=== PATIENT | male | born 1950 | race Caucasian/White ===

== ENCOUNTER 2024-06-09 09:34 | Inpatient (IN) | payer MEDICARE, SELFPAY ==
[2024-06-08 17:33] VITALS: BP 141/83
[2024-06-08 17:39] VITALS: BMI 22.5
[2024-06-08 18:20] LABS: % Basophils 0.2 % (0-2); % Eosinophils 0.2 % (0-6); % Immature Granulocytes 0.5 % (0-0.5); % Lymphocytes 10.7 % (20.5-51.1); % Monocytes 5.1 % (1.7-9.3); % Neutrophils 83.3 % (42.2-75.2); Absolute Immature Granulocytes 0.1 10^3/uL (0-0.05); Absolute Lymphocytes 1.3 10^3/uL (1.2-3.4); Absolute Monocytes 0.6 10^3/uL (0.1-0.6); Hematocrit 29.6 % (39.0-52.0); Hemoglobin 9.9 g/dL (13.0-18.0); Mean Corp Hgb Conc. 33.4 g/dL (33.0-37.0); Mean Corpuscular Hgb 29.7 pg (27.0-31.0); Mean Corpuscular Volume 88.9 fL (80.0-94.0); Mean Platelet Volume 8.7 fL (7.4-10.4); Nucleated Red Blood Cells % 0 % (-); Platelet Count 252 10^3/uL (130-400); Red Blood Cell Count 3.33 10^6/uL (4.70-6.10); Red Cell Dist. Width 16.9 % (11.5-14.5)
[2024-06-08 18:29] LABS: ALT (SGPT) 24 U/L (0-50); AST (SGOT) 48 U/L (17-59); Albumin 3.4 g/dl (3.5-5.0); Alkaline Phosphatase 208 U/L (38-126); Blood Urea Nitrogen 21 mg/dl (9-20); Calcium 9.9 mg/dl (8.4-10.2); Carbon Dioxide 26 mmol/L (22-30); Chloride 103 mmol/L (98-107); Estimated Creatinine Clearance 79 ml/min; Glucose 108 mg/dl (70-99); Magnesium 1.5 mg/dl (1.6-2.3); Potassium 4.1 mmol/L (3.5-5.1); Sodium 137 mmol/L (135-145); Total Bilirubin 0.6 mg/dl (0.2-1.3); Total Protein 6.2 g/dl (6.3-8.2); eGFR > 60.00
[2024-06-08] MEDS: DILAUDID 1 MG IV ×2 (19:31→20:31)
[2024-06-08] MEDS: TORADOL 15 MG IV (19:32)
[2024-06-08] MEDS: NSS 1000 IV (19:45)
--- NOTE | 2024-06-08 19:45 | ED.GENMED ---
History of Present Illness
General
Chief Complaint: Back Pain
Source: patient
Exam Limitations: none
Time Seen by Provider: 06/08/24 19:08
Nursing documentation reviewed up to this point in time: agreed with
History of Present Illness
History of Present Illness:
Patient with history of esophageal cancer with liver metastases, last chemotherapy withheld secondary to underlying Crohn's disease flareup, presents to ED secondary to worsening left lower back pain over the past 6 weeks despite taking pain
medication at home. Patient's last CT abdomen pelvis last month, did not reveal any bony abnormalities, per spouse. Denies fever or chills. Denies nausea or vomiting. Patient is reporting continual bloody bowel movements, not worse than usual
from his underlying Crohn's disease. Denies dizziness. Patient has chronic abdominal pain secondary to esophageal cancer, for which he is taking oxycodone. Denies trauma. Denies leg weakness or numbness. Denies urinary or bowel incontinence.
of note, patient currently takes prednisone 10 mg daily, to treat inflammatory response to chemotherapy, as well as Crohn's disease.
Past History
Past History
ED Past Medical History: Other (Crohn's/PUD)
ED Past Surgical History: None
Social History
Tobacco: Non-smoker
Alcohol: None
Drug: None
Personal:
Living: with family
Employment: Employed
Family History
Family History: Other (Noncontributory)
Review of Systems
Review of Systems
Allergies reviewed?: Yes
All Other Systems: ROS reviewed and negative except as documented in HPI and ROS
Constitutional: Reports no symptoms; Denies fever
Respiratory: Reports no symptoms
Cardiac: Reports no symptoms
ABD/GI: Reports abdominal pain and bloody stools; Denies nausea or vomiting
: Reports no symptoms; Denies flank pain, incontinence or difficulty voiding
Musculoskeletal: Reports back pain; Denies neck pain
Skin: Reports no symptoms
Neurological: Reports no symptoms; Denies weakness or numbness
Phy Exam
Physical Exam
Physical Exam:
Physical Exam
General: moderate painful distress. afebrile
Head: nc/at. eomi
Neck: supple. normal range of motion.
Heart: s1/s2 regular rate and rhythm, no murmur.
Lungs: no acute respiratory distress. clear bilaterally
Abdomen: normal bowel sounds. not tender.
Back: left lower back tenderness to palpation with positive straight leg raise
Neuro: alert and oriented x 3. no focal neurological deficits. normal speech
Skin: no rash
Psychiatric: well kept. interactive and cooperative
Extremities: no edema. no calf tenderness.
Course
Orders/Labs/Results
Orders:
Orders
06/08/24 Breakfast
Regular
At Your Request: Full Participation
06/08/24 18:08
Complete Blood Count/With Diff Urgent
Comprehensive Metabolic Panel Urgent
Magnesium Urgent
06/08/24 19:29
HYDROmorphone [Dilaudid] 1 mg IV NOW STA
Ketorolac [Toradol] 15 mg IV NOW STA
CR Lumbar Spine Comp Min 4 Vw* Urgent
Comment:
Reason For Exam: left lower back pain, hx esophageal cancer
06/08/24 19:41
0.9% Sodium Chloride 1000 ml [Nss] 1,000 ml IV BOLUS
06/08/24 19:43
0.9% Sodium Chloride 1000 ml [Nss] 1,000 ml IV BOLUS
06/08/24 19:47
Urinalysis Reflex To Culture Urgent
Date Specimen was Collected: 06/08/24
Time Specimen was Collected: 19:46
06/08/24 19:52
diazePAM [Valium Injection] 2 mg IV NOW STA
06/08/24 19:56
Magnesium Sulfate 1 grams 0.9% Sodium Chloride 100 ml [Nss] 100 ml IV NOW
06/08/24 20:22
HYDROmorphone [Dilaudid] 1 mg IV NOW STA
06/08/24 22:02
Admit/Transfer Patient As Directed
Co-Sign Provider:
Level of Care: Observation services
Assign to:: Medical/Surgical
Physician / Group: heidi
Diagnosis: compression fracture
Reason for Hospitalization: compression fracture
patient requesting private room due to esophageal cancer, Crohn's disease
PRN Pain Medication Management As Directed
May give lesser potent ordered pain med per pt: Yes
preference::
Protocol:: Medication orders for pain may be administered in a
manner that supports deferring to patient preference
when the pt is:
- Requesting an ordered lesser potent pain medication.
Least to most potent pain medications are defined
as: acetaminophen < NSAID < tramadol < opioids
(morphine, oxycodone, hydromorphone).
- Requesting a lesser dose of the same medication IF
ORDERED.
- Requesting a less intrusive route of administration
if both routes are prescribed by the provider (PO <
IV).
06/08/24 22:07
Code Status As Directed
Resuscitation Status: Full Code
06/08/24 22:10
Lidocaine [Lidocaine 4% Patch] 1 patch TOPICAL HS
Apply Lidocaine patch(s) to:: lower back
06/08/24 23:00
Flush (0.9% Sodium Chloride) [Flush (Nss)] See Dose Instructions IV PER PROTOCOL
06/08/24 23:06
Baclofen [Lioresal] 5 mg PO DAILYPRN PRN
Bisacodyl [Dulcolax] 10 mg RECTAL [id number] PRN
Docusate W/Senna [Senokot-S] 1 tablet PO BIDPRN PRN
HYDROmorphone [Dilaudid] 1 mg IV Q4HPRN PRN
Ketorolac [Toradol] 10 mg IV Q6HPRN PRN
Lorazepam [Ativan] 0.5 mg PO DAILYPRN PRN
Olanzapine [Zyprexa] 2.5 mg PO BIDPRN PRN
Polyethylene Glycol Powder [Miralax] 17 grams PO DAILYPRN PRN
06/08/24 23:06
MR Lumbar Without Contrast Routine
Comment:
Reason For Exam: back pain
Recent pill cam endoscopy?: No
Activity As Directed
Activity Level: As Tolerated
Pneumatic Compression Sleeves As Directed
Type: Knee high
Vital Signs As Directed
Frequency: Per unit guidelines
DX Deep Vein Thrombosis Video Routine
06/09/24 00:00
Sertraline HCl [Zoloft] 50 mg PO QPM
06/09/24 06:00
Basic Metabolic Panel IN AM
Complete Blood Count/No Diff IN AM
Occupational Therapy Consult [Ot Eval And Treat] IN AM
Physical Therapy Consult [Pt Eval And Treat] IN AM
Activity Level: As Tolerated
06/09/24 08:00
Acetaminophen [Tylenol] 1,000 mg PO TID
Magnesium Oxide 250 mg PO BID
Pantoprazole [Protonix] 40 mg PO BID
Prednisone [Deltasone] 10 mg PO DAILY
06/09/24 10:00
Remove Patch [Remove Lidocaine Patch] 1 patch REMOVE DAILY@1000
Abnormal Lab Results
06/08/24
18:08
WBC 12.0 H 10^3/uL
(4.8-10.8)
RBC 3.33 L 10^6/uL
(4.70-6.10)
Hgb 9.9 L g/dL
(13.0-18.0)
Hct 29.6 L %
(39.0-52.0)
RDW 16.9 H %
(11.5-14.5)
Abs Immat Gran (auto) 0.1 H 10^3/uL
(0-0.05)
Absolute Neuts (auto) 10.0 H 10^3/uL
(1.4-6.5)
Neutrophils % 83.3 H %
(42.2-75.2)
Lymphocytes % 10.7 L %
(20.5-51.1)
BUN 21 H mg/dl
(9-20)
Glucose 108 H mg/dl
(70-99)
Magnesium 1.5 L mg/dl
(1.6-2.3)
Alkaline Phosphatase 208 H U/L
(38-126)
Total Protein 6.2 L g/dl
(6.3-8.2)
Albumin 3.4 L g/dl
(3.5-5.0)
06/08/24 18:08
06/08/24 18:08
Vital Signs
Initial and Last Documented VS:
Initial Vital Signs
Temp Pulse Resp BP Pulse Ox
99.5 F 74 18 141/83 98
06/08/24 17:33 06/08/24 17:33 06/08/24 17:33 06/08/24 17:33 06/08/24 17:33
Last Documented Vital Signs
Temp Pulse Resp BP Pulse Ox
99.5 F 70 16 134/75 96
06/08/24 17:33 06/08/24 21:14 06/08/24 21:14 06/09/24 00:00 06/09/24 00:00
MDM/Problems Addressed
MDM/Problems Addressed:
Patient unfortunate with intractable back pain despite treatment with multiple medications in ED. At this time, however, patient does not have any physical exam findings concerning for cauda equina syndrome. Patient will be admitted for further
evaluation and treatment, including possible MRI spine, if symptoms persist.
*Critical Care Note
Total Time (30-74mins, 75-104mins- exclusive of procedures): Not Applicable
ED Attending Note
-
Portions of this chart may have been created with voice recognition software.� Occasional wrong word or��sound alike� substitutions may have occurred due to the inherent limitations of voice recognition software.
Discharge Plan
Departure
Patient Disposition: Admit
Date of Disposition: 06/08/24
Time of Disposition: 21:30
Admit to: Med/Surg
Presentation/result/management discussed w/ accepting MD/DO: Hospitalist
Discharge Problem:
Intractable back pain, Compression fracture
Interventions
Interventions:
*Risk Screen - Suicide Last Done: 06/08/24 17:33
*General Assessment Last Done: 06/08/24 17:33
*Neglect/Abuse Screening Last Done: 06/08/24 18:05
*ED- Fall Risk Assessment Last Done: 06/08/24 18:00
*ED COVID-19 Vaccine History Last Done: 06/08/24 23:55
ED-Musculoskeletal Assessment Last Done: 06/08/24 19:27
[2024-06-08] MEDS: VALIUM INJECTION 2 MG IV (19:54)
[2024-06-08 19:56] LABS: Urine Albumin Negative (Neg - Trace); Urine Bilirubin Negative (Negative); Urine Character Clear (Clear); Urine Color Yellow; Urine Glucose Negative (Negative); Urine Ketone Negative (Negative); Urine Leukocyte Negative (Negative); Urine Nitrite Negative (Negative); Urine Occult Blood Negative (Negative); Urine Specific Gravity 1.015 (<1.030); Urine Urobilinogen Negative (Neg - 1+)
[2024-06-08] MEDS: MAGNESIUM SULFATE 102 GRAMS IV (20:32)
[2024-06-08 21:14] VITALS: BP 146/75
--- NOTE | 2024-06-08 21:32 | HPS.HSE ---
Family Physician
-
Family Physician: Bean Moran
Chief Complaint
-
left lower back pain.
History of Present Illness
73 year old old hxt of stage iv esophageal cancer follows oncology at [facility] on Immunotherapy, anxiety presents with left sided lower back pain. the pain is not radiating to LE. he denied incontinence of bowel and bladder. Denies trauma. Denies leg
weakness or numbness. patient also complaining of right arm pain. patient taking oxycodone, baclofen with no relief in his symptoms. denied ACOSTA, dizzy or syncope. denied fever, chills chest pain, sob. patient has chornic abdominal pain and diarrhea
due to Crohn's disease. denied dysuria or hematuria.
X ray with the impression of Age indeterminant compression fracture of the L3 vertebral body.There is a mild compression deformity of the L1 vertebral body which appears present on prior.There is mild facet arthropathy within the mid/lower lumbar
spine.
Patient received Valium, Dilaudid, Toradol, magnesium, normal saline in the ER admitted for further management
Medical History
Past Medical History
Past Medical History: Reports Other
Additional Past Medical History:
External hemorrhoid
Epididymal/orchitis
Close visit
Past Surgical History: Reports Other
Additional Past Surgical History:
Appendectomy
Cholecystectomy
Social History
Tobacco: Former Smoker
Alcohol: None
Drug: None
Personal:
Living: With Family
Family History
Family History: Not pertinent
Allergies / Home Medications
Allergies reflects when Allergies were last updated in [facility].
Home Medications with original date entered in [facility]
Allergy/Medication List:
Allergies
Allergy/AdvReac Type Severity Reaction Status Date / Time
bacitracin Allergy Severe Rash Verified 12/10/17 19:17
[From Neosporin
([id number])]
neomycin Allergy Severe Rash Verified 12/10/17 19:17
[From Neosporin
([id number])]
polymyxin B Allergy Severe Rash Verified 12/10/17 19:17
[From Neosporin
([id number])]
Latex, Natural Rubber Allergy soft Verified 12/10/17 19:17
tissue
swelling
w/ latex
gloves
orally
prochlorperazine edisylate Allergy muscle Verified 12/10/17 19:17
[From Compazine] twitch
prochlorperazine maleate Allergy Unknown Verified 12/10/17 19:17
[From Compazine]
Home Medications
Magic Mouthwash 1 dose buccal DAILYPRN PRN mouth sores 06/08/24
baclofen 5 mg tablet 5 mg PO DAILYPRN PRN burping 06/08/24
dexamethasone 0.5 mg/5 mL oral solution 0.5 mg PO DAILYPRN PRN mouth sores 06/08/24
esomeprazole magnesium 40 mg capsule,delayed release (Nexium) 40 mg PO BID 06/08/24
lorazepam 0.5 mg tablet 0.5 mg PO DAILYPRN PRN nausea 06/08/24
magnesium oxide 200 mg PO BID 06/08/24
olanzapine 2.5 mg tablet 2.5 mg PO BIDPRN PRN mental health 06/08/24
ondansetron 4 mg disintegrating tablet 4 mg PO DAILYPRN PRN nausea 06/08/24
oxycodone 10 mg tablet 20 mg PO Q3HPRN PRN severe pain 06/08/24
polyethylene glycol 3350 17 gram oral powder packet (Miralax) 17 g PO DAILYPRN PRN constipation 06/08/24
prednisone 10 mg tablet 10 mg PO DAILY 06/08/24
sennosides 8.6 mg tablet (senna) 8.6 mg PO DAILYPRN PRN constipation 06/08/24
sertraline 50 mg tablet 50 mg PO QPM 06/08/24
Review of Systems
-
Constitutional: Reports No Symptoms
EENT: Reports No Symptoms
Respiratory: Reports No Symptoms
Cardiac: Reports No Symptoms
Abdomen/GI: Reports No Symptoms
: Reports No Symptoms
Musculoskeletal: Reports Other (left lower back pain, right arm pain)
Skin: Reports No Symptoms
Neurological: Reports No Symptoms
Endocrine: Reports No Symptoms
Hematologic/Lymphatic: Reports No Symptoms
Psych: Reports No Symptoms
Physical Exam
Vital Signs
Vital Signs
Temp Pulse Resp BP Pulse Ox
99.5 F 70 16 146/75 98
06/08/24 17:33 06/08/24 21:14 06/08/24 21:14 06/08/24 21:14 06/08/24 21:14
Physical Exam
General: Well Developed, Well Nourished and No Apparent Distress
HEENT: NormoCephalic, Moist mucous membranes and Atraumatic
Respiratory: Clear
Cardiac: S1/S2 and Regular Rhythm; No Murmur or Rub
GI: Soft, Non Tender, Non Distended and Normal Bowel Sounds; No Organomegaly
Rectal: Deferred by Provider
Musculoskeletal: No Clubbing, No Cyanosis and No Edema
Skin: No Rash
Neuro: AO x 3 and Nonfocal/grossly intact
Psych: Calm
Laboratory Results
-
06/08/24 18:08
06/08/24 18:08
Laboratory Results
Total Bilirubin 0.6 mg/dl (0.2-1.3) 06/08/24 18:08
AST 48 U/L (17-59) 06/08/24 18:08
ALT 24 U/L (0-50) 06/08/24 18:08
Alkaline Phosphatase 208 U/L (38-126) H 06/08/24 18:08
Data Reviewed
-
Diagnostic Radiology: Report Reviewed by me
Lab Data: Labs Reviewed by me
Impression/Plan
-
# Intractable back pain likely from compression fracture of the L3 vertebral body.
- Lumbar spine x-ray with the impression of Age indeterminant compression fracture of the L3 vertebral body.There is a mild compression deformity of the L1 vertebral body which appears present on prior.There is mild facet arthropathy within the
mid/lower lumbar spine.
-PT/OT consulted
-Toradol, Dilaudid, Lidocaine patch, Tylenol prn for pain
-baclofen continued
-obtain MRI of lumbar spine.
# Chron's flare
-Nexium continued
-prednisone continued
-on Remicade as outpatient
#hxt of stage IV esophageal cancer
-on Immunotherapy at [facility]
#anxiety
-olanzapine,sertraline continued
# Leukocytosis likely from steroids
- WBC 12.0, patient is afebrile
- Continue to monitor
- UA negative
# Anemia likely chronic
- Hemoglobin stable at 9.9
- No active bleeding
- Continue to monitor
# hypomagnesemia
- Mag 1.5
-replated with iv mag
#DVT Prophylaxis
-SCD
#CODE status
-full code
--- NOTE | 2024-06-08 21:41 | W.PN.UPDATE ---
Update Note
Progress Note Update
Patient seen in conjunction with [facility]. I agree with the findings and history of physical. I concur with assessment and plan listed otherwise.
This is a 73-year-old past medical history significant for metastatic esophageal cancer with mets to the liver currently on chemotherapy presenting to the emergency department with intractable left lower back pain. As past report that the patient
has been having back pain for several weeks. He had a CT scan done on 05/11 which showed compression fracture at the level of L3 without progression into the spinal canal. He has continued to have pain after the study and the pain became more
severe over the last 2 weeks. There was no new injury. He has not had any fevers or chills. There were no radicular signs including paresthesias, numbness or weakness. There is no bilateral lower extremity weakness. There is no incontinence of
the bladder or bowel. He has no anesthesia. He denies any urinary symptoms such as frequency urgency dysuria, fevers chills or hematuria. It was reported yesterday patient had severe right arm pain to touch. There was no swelling. There was no
rash or redness. There was no weakness numbness or tingling. He denies any neck pain or neck stiffness.
He is on Remicade and daily prednisone for management of ongoing Crohn's flare. He is also on immunotherapy for his metastatic esophageal cancer with last infusion held due to abnormal findings on CT scan thought to be possibly inflammatory or
secondary to the medication.
In the Emergency Department he was afebrile with a Tmax of 99.5F, blood pressure was 146/75 with a pulse of 71 satting 98% on room air.
White count was 12, hemoglobin 9.9 ambulated 52. Electrolytes were unremarkable with normal BUN and creatinine. Magnesium was slightly low at 1.5, LFTs were mostly normal with a slight elevation in alk phos.
UA was negative. X-ray of the lumbar spine shows no acute bony changes.
1. Back pain - Suspect due to the previously seen compression fracture. Age indeterminate L3 compression fracture on Xray today similar to seen on CT scan in early april. No weakness, numbness, tingling. No bowel/bladder symptoms. Overall low to
moderate concern for myelopathy and minimal concern for radiculopathy. However family extremely concerned. Improved after IV dilauid 1mg x 2 and
- admit to med/surg
- pain control with IV toradol and IV dilaudid. Tylenol RTC
- bowel regimen
- topical lidocaine
- MRI lumbar spine
- PT consult
- case management
2. Crohns
- continue prednisone
- on outpatient Remicade
DVT PPX - lovenox sq
Code status - full code
[2024-06-09] VITALS (8 sets, daily range): BP systolic 118–148; BP diastolic 63–79
[2024-06-09] MEDS: LIDOCAINE 4% PATCH 1 PATCH TOPICAL ×2 (00:34→23:03)
[2024-06-09] MEDS: ZOLOFT 50 MG PO ×2 (00:39→17:34)
[2024-06-09] MEDS: DILAUDID 1 MG IV ×3 (00:44→08:42)
[2024-06-09] MEDS: NON-FORMULARY ITEM 40 MG PO ×3 (01:00→18:11)
[2024-06-09] MEDS: TORADOL 10 MG IV ×3 (01:38→19:38)
[2024-06-09] MEDS: VALIUM INJECTION 2 MG IV ×3 (04:39→19:44)
[2024-06-09 05:10] LABS: Hematocrit 28.9 % (39.0-52.0); Hemoglobin 9.8 g/dL (13.0-18.0); Mean Corp Hgb Conc. 33.9 g/dL (33.0-37.0); Mean Corpuscular Hgb 30.2 pg (27.0-31.0); Mean Corpuscular Volume 89.2 fL (80.0-94.0); Mean Platelet Volume 8.6 fL (7.4-10.4); Platelet Count 228 10^3/uL (130-400); Red Blood Cell Count 3.24 10^6/uL (4.70-6.10); Red Cell Dist. Width 16.7 % (11.5-14.5); White Blood Cell Count 9.6 10^3/uL (4.8-10.8)
[2024-06-09 05:41] LABS: Blood Urea Nitrogen 23 mg/dl (9-20); Calcium 9.8 mg/dl (8.4-10.2); Carbon Dioxide 25 mmol/L (22-30); Chloride 104 mmol/L (98-107); Estimated Creatinine Clearance 91 ml/min; Glucose 67 mg/dl (70-99); Potassium 3.8 mmol/L (3.5-5.1); Sodium 138 mmol/L (135-145); eGFR > 60.00
[2024-06-09 05:42] LABS: Magnesium 1.9 mg/dl (1.6-2.3)
[2024-06-09] MEDS: MAGNESIUM OXIDE 250 MG PO ×2 (08:42→19:38)
[2024-06-09] MEDS: DELTASONE 10 MG PO (08:42)
[2024-06-09] MEDS: TYLENOL 1000 MG PO (08:42)
--- NOTE | 2024-06-09 09:28 | W.PN.HOSP.TC ---
Today's Communication/Plan
-
Lumbar MRI
Add OxyContin
Resume oxycodone as needed
Bowel regimen
PT/OT
Speech therapy
Assessment / Plan
Assessment / Plan
Gen-AAOx3, NAD
HEENT-NC, AT, anicteric, clear oral mm
Neck-supple
CV-reg, no M, +S1/S2
Lungs-clear B/L
Abd-soft, NT, ND
Ext-no edema
Musculoskeletal-no cyanosis, clubbing
Skin-warm and dry
Neuro-grossly non-focal
Psych-calm, cooperative
Intractable pain syndrome -suspect related to lumbar vertebral compression fractures. Lumbar x-ray noted. Fractures involving L1 and L3 vertebrae. Suspect fractures related to underlying osteoporosis. Less likely due to metastatic esophageal
cancer. Patient denies fall or trauma.
Resume oxycodone 20 mg every 3 hours as needed. Add OxyContin 20 mg every 12 hours. IV Dilaudid for intractable pain. Patient agreeable.
Lumbar vertebral compression fractures -as above. Await lumbar MRI. Continue analgesics. PT/OT.
Metastatic esophageal cancer -on treatment by [facility] oncology. Does have some dysphagia. Consult speech therapy.
Crohn's disease -on prednisone chronically.
Hypomagnesemia -improved.
Normocytic anemia -suspect chronic and related to malignancy. Monitor for now. Baseline hemoglobin unknown.
Anxiety disorder
Full code
updated at the bedside.
Anticipated Discharge: 24 - 48 hours
Subjective/Interval History
-
Date of Service: June 09, 2024
Patient seen and examined. Complaining of lower back pain.
Objective Data
-
Labs:
Laboratory Results
06/09/24
04:45
WBC 9.6
Hgb 9.8 L
Hct 28.9 L
Plt Count 228
Sodium 138
Potassium 3.8
Chloride 104
Carbon Dioxide 25
BUN 23 H
Creatinine 0.7
Glucose 67 L
Calcium 9.8
Vital Signs:
Vital Signs
Temp Pulse Resp BP Pulse Ox
98.6 F 73 18 148/76 94
06/09/24 08:37 06/09/24 08:37 06/09/24 08:37 06/09/24 08:37 06/09/24 08:37
Review of Systems
-
History Source: Patient
All other systems: Reviewed and negative
--- NOTE | 2024-06-09 10:45 | CM ---
CM following re: discharge planing.
Reviewed pt's chart, met with pt and pt's spouse at bedside.
Pt is a 73 year old male, admitted with primary dx of Intractable pain syndrome. PMH includes: stage iv esophageal cancer follows oncology at [facility] on Immunotherapy, anxiety. Pt is upgraded to inpatient status. IMM reviewed, placed on chart, pt has
a copy.
Pt livers with spouse 2SH, 1 step to enter, has no children and per spouse pt has big family support. Pt reports he ambulates with a cane as needed. Pt's spouse stated that pt has been in and out different hospitals in the past 6 months.
PT and OT will evaluate the pt to determine a level of care at discharge.
PCP: Bean Moran
Pharmacy: [facility] [place]
D/C plan: uncertain at this time and will depend on pt's progress. Awaiting PT/OT evaluations and recommendations.
CM will follow with discharge plan updates as hospitalization progresses.
[2024-06-09] MEDS: OXYCONTIN (CONTROLLED RELEASE) 20 MG PO ×2 (11:00→23:03)
[2024-06-09] MEDS: MIRALAX PO (11:01)
[2024-06-09] MEDS: SENOKOT-S PO ×2 (11:01→19:34)
[2024-06-09] MEDS: ROXICODONE 20 MG PO ×4 (11:05→20:49)
--- NOTE | 2024-06-09 15:03 | PTOTSP ---
Speech Therapy Evaluation:
Pt presents with signs concerning for mild oral dysphagia as demonstrated by brief oral holding of liquids and puree with slow but present AP transfers. No signs concerning for pharyngeal dysphagia or aspiration. Pt at increased risk of
post-prandial aspiration given esophageal hx including Stage IV esophageal cancer, occasional reports of globus sensation, and suboptimal positioning for swallowing secondary to chronic back pain. Currently, WBC WNL, pt afebrile, and pt on room air.
Recommend:
1. Continue regular solids and thin liquids
2. Medications as best tolerated with larger pills crushed in puree per pt preference
3. Strict aspiration and reflux precautions
4. FAMILY LAW ATTORNEY to follow to monitor tolerance of diet and provide education in compensations.
[2024-06-09] MEDS: TYLENOL PO ×2 (16:00→23:04)
[2024-06-10] VITALS (7 sets, daily range): BP systolic 97–112; BP diastolic 53–63; PULSE 76–80; O2SAT 93–94
[2024-06-10] MEDS: TORADOL 10 MG IV (01:39)
[2024-06-10] MEDS: VALIUM INJECTION 2 MG IV ×3 (01:40→17:27)
[2024-06-10] MEDS: ROXICODONE 20 MG PO ×3 (04:46→20:19)
[2024-06-10] MEDS: DESENEX/MITRAZOL/ZEASORB 1 APPLIC TOPICAL ×2 (08:05→20:11)
[2024-06-10] MEDS: DELTASONE 10 MG PO (08:20)
[2024-06-10] MEDS: NON-FORMULARY ITEM 40 MG PO (08:21)
[2024-06-10] MEDS: MIRALAX PO (08:22)
[2024-06-10] MEDS: SENOKOT-S PO ×2 (08:23→20:13)
[2024-06-10] MEDS: TYLENOL 1000 MG PO ×3 (08:24→22:23)
[2024-06-10] MEDS: MAGNESIUM OXIDE 250 MG PO (08:24)
[2024-06-10] MEDS: OXYCONTIN (CONTROLLED RELEASE) PO (09:04)
--- NOTE | 2024-06-10 10:32 | W.PN.HOSP.TC ---
Today's Communication/Plan
-
Add ibuprofen
Lumbar MRI
Bowel regimen
Assessment / Plan
Assessment / Plan
Gen-AAOx3, NAD
HEENT-NC, AT, anicteric, clear oral mm
Neck-supple
CV-reg, no M, +S1/S2
Lungs-clear B/L
Abd-soft, NT, ND
Ext-no edema
Musculoskeletal-no cyanosis, clubbing
Skin-warm and dry
Neuro-grossly non-focal
Psych-calm, cooperative
Intractable pain syndrome -suspect related to lumbar vertebral compression fractures. Lumbar x-ray noted. Fractures involving L1 and L3 vertebrae. Suspect fractures related to underlying osteoporosis. Less likely due to metastatic esophageal
cancer. Patient denies fall or trauma.
Continue oxycodone 20 mg every 3 hours as needed, OxyContin 20 mg every 12 hours. IV Dilaudid for intractable pain. Change Toradol to ibuprofen 800 mg 4 times daily [id number]. Patient agreeable.
Bowel regimen.
Lumbar vertebral compression fractures -as above. Await lumbar MRI. Continue analgesics. PT/OT.
Metastatic esophageal cancer -on treatment by [facility] oncology. Does have some dysphagia. Speech therapy recommends regular solids, thin liquids.
Crohn's disease -on prednisone chronically.
Hypomagnesemia -improved.
Normocytic anemia -suspect chronic and related to malignancy. Monitor for now. Baseline hemoglobin unknown.
Anxiety disorder
Full code
Dispo -will need SNF on discharge. Updated case management.
updated at the bedside.
Anticipated Discharge: 24 - 48 hours
Subjective/Interval History
-
Date of Service: June 10, 2024
Patient seen and examined. States his lower back pain is somewhat better today compared to yesterday. No new complaints.
Objective Data
-
Vital Signs:
Vital Signs
Temp Pulse Resp BP Pulse Ox
99.9 F 88 15 112/58 95
06/10/24 07:00 06/10/24 07:00 06/10/24 07:00 06/10/24 07:00 06/09/24 23:20
I&O
06/09/24 06/10/24 06/11/24
06:59 06:59 06:59
Intake Total 250 / 250
Output Total 200 / 200
Balance 50 / 50
Review of Systems
-
History Source: Patient
All other systems: Reviewed and negative
[2024-06-10] MEDS: DILAUDID 1 MG IV ×3 (10:45→22:23)
--- NOTE | 2024-06-10 11:43 | CM ---
CM following re: discharge planning.
Reviewed pt's chart, met with pt's SO at bedside. Pt is getting MRI.
Pt's SO is aware that PT/OT recommend SNF vs home PT. Pt's SO stated that pt is very sensitive to germs and she feels that SNF will not be a good idea and pt's SO stated she will talk to the pt after he returned from MRI. Pt's SO stated she feels
[facility] might be an ideal plan but she is not sure whether or not pt can tolerate 3 hours of therapy per day.
Per pt's SO strong request, CM will revisit the pt later this afternoon or tomorrow morning to confirm the discharge plan.
D/C plan: SNF vs [facility] vs home PT. Pt's SO is deciding with the pt.
CM will follow to assist pt with discharge to next level of care.
[2024-06-10] MEDS: OXYCONTIN (CONTROLLED RELEASE) 20 MG PO ×2 (12:20→23:39)
[2024-06-10] MEDS: 0.45%NACL 1000 IV (12:20)
[2024-06-10] MEDS: MOTRIN 800 MG PO ×3 (12:21→22:23)
[2024-06-10] MEDS: ZOLOFT 50 MG PO (17:27)
[2024-06-10] MEDS: MAGNESIUM OXIDE PO (20:13)
[2024-06-10] MEDS: NON-FORMULARY ITEM PO (20:13)
[2024-06-10] MEDS: LIDOCAINE 4% PATCH 1 PATCH TOPICAL (22:22)
[2024-06-11] MEDS: DILAUDID 1 MG IV ×4 (06:11→21:17)
[2024-06-11 07:05] VITALS: BP 98/59
--- NOTE | 2024-06-11 08:38 | W.PN.HOSP.TC ---
Today's Communication/Plan
-
Oncology consult
Bowel regimen
Continue analgesics
PT/OT
Assessment / Plan
Assessment / Plan
Gen-AAOx3, NAD
HEENT-NC, AT, anicteric, clear oral mm
Neck-supple
CV-reg, no M, +S1/S2
Lungs-clear B/L
Abd-soft, NT, ND
Ext-no edema
Musculoskeletal-no cyanosis, clubbing
Skin-warm and dry
Neuro-grossly non-focal
Psych-calm, cooperative
Intractable pain syndrome -suspect related to lumbar vertebral compression fractures. Lumbar x-ray noted. Fractures involving L1 and L3 vertebrae. Suspect fractures related to underlying osteoporosis. Less likely due to metastatic esophageal
cancer. Patient denies fall or trauma.
Continue oxycodone 20 mg every 3 hours as needed, OxyContin 20 mg every 12 hours. IV Dilaudid for intractable pain. Continue ibuprofen [id number].
Bowel regimen. No bowel movement so far in the hospital.
L3 pathologic fracture -noted on lumbar MRI. Concern for metastatic esophageal cancer, although esophageal cancer is not a common cancer to metastasize to the spine. Oncology consulted for opinion regarding possible biopsy of L3 vertebrae. Not
sure this would knife changer, as patient already is known to have stage IV esophageal cancer.
Patient has no radicular symptoms, no leg weakness. Should he develop radicular symptoms, may need spinal surgery. Discussed with patient and . Also discussed with neurosurgery Dr. Bucio for opinion.
Metastatic esophageal cancer -on treatment by [place] oncology. Does have some dysphagia. Speech therapy recommends regular solids, thin liquids.
Crohn's disease -on prednisone chronically.
Hypomagnesemia -improved.
Normocytic anemia -suspect chronic and related to malignancy. Monitor for now. Baseline hemoglobin unknown.
Anxiety disorder
Full code
Dispo -will need SNF on discharge. Updated case management. However, is concerned about his immunosuppression and risk of potential infections in rehab. She is contemplating taking him home with home care but unsure if they can manage at
home.
updated at the bedside.
Anticipated Discharge: 24 - 48 hours
Subjective/Interval History
-
Date of Service: June 11, 2024
Patient seen and examined. Pain is manageable. No complaints.
Objective Data
-
Vital Signs:
Vital Signs
Temp Pulse Resp BP Pulse Ox
97.9 F 56 17 98/59 95
06/11/24 07:05 06/11/24 07:05 06/11/24 07:05 06/11/24 07:05 06/11/24 07:05
I&O
06/10/24 06/11/24 06/12/24
06:59 06:59 06:59
Intake Total 250 / 250 480 / 480
Output Total 200 / 200 750 / 750
Balance 50 / 50 -270 / -270
Review of Systems
-
History Source: Patient
All other systems: Reviewed and negative
[2024-06-11] MEDS: MAGNESIUM OXIDE 250 MG PO ×2 (09:52→20:55)
[2024-06-11] MEDS: TYLENOL 1000 MG PO ×3 (09:53→21:09)
[2024-06-11] MEDS: DELTASONE 10 MG PO (09:53)
[2024-06-11] MEDS: MOTRIN 800 MG PO ×4 (09:53→21:09)
[2024-06-11] MEDS: PROTONIX 40 MG PO (10:00)
--- NOTE | 2024-06-11 10:05 | CON.ONC ---
Consultation
-
Date Consultation Requested: 06/11/24
Date Consultation Performed: 06/11/24
Requesting Provider: Dr. Cabral
Performing Provider: Dr. Perez
Reason for Consultation: Metastatic esophageal cancer
Impression
Impression
stage IV esophageal cancer on immunotherapy with Dr. Kulkarni at [facility]
Intractable back pain likely from compression fracture of the L3 vertebral body
dysphagia
anemia
Plan
Plan
dexamethasone 4mg q6 -PPI while on steroid, tight glycemic control while on steroids
increase baclofen to 10mg prn
eventual outpatient XRT to L3
pain management
bowel regimen while on narcotics
check iron studies, b12, folate -replete if needed
speech therapy
If needs SNF vs rehab at d/c consider [facility]VAR to facilitate XRT to L3 d/w hospitalist & case management
Dr. Perez discussed case with primary oncologist, Dr. Kulkarni and Radiation oncology.
at bedside provided with updates and questions answered
Patient History
History of Present Illness
73yo M known to Dr. Kulkarni at [facility] for management of stage IV esophageal ca admitted with intractable back pain. His labs are notable for anemia with a Hgb 9.8g/dL and elevated alk phos 208, otherwise there are no significant abnormalities on CBC and
CMP today. His MRI of the lumbar spine reveals a L3 expansile metastatic lesion with pathologic fracture and secondary encroachment upon the central canal, left lateral recess, and left L3-4 neural foramen. Moderate central canal and severe left
lateral recess stenosis. Mild compression of the exiting left L3 nerve root. There are additional small lesions demonstrated involving T11 and T12.
Clinically, he denies fever, chills, cough, sob, chest pain, palpations, n/v/d or abdominal pain. His back pain is better controlled with IV hydromorphone prn in addition to oxycodone CR 20mg BID and oxycodone IR 20mg prn. He is using diazepam prn
anxiety.
Past-Medical/Surgical History
PMH stage IV esophageal cancer, anxiety, External hemorrhoid, Epididymal/orchitis
PSH Appendectomy, Cholecystectomy
Social former smoker, denies ETOH or recreational drugs. Lives with .
Family noncontributory
Patient Medication
�Medication �Instructions �Recorded �Confirmed �Last Taken �Type
Magic Mouthwash 1 dose buccal DAILYPRN PRN mouth 06/08/24 06/08/24 Unknown History
sores
baclofen 5 mg tablet 5 mg PO DAILYPRN PRN burping 06/08/24 06/08/24 Unknown History
dexamethasone 0.5 mg/5 mL oral 0.5 mg PO DAILYPRN PRN mouth sores 06/08/24 06/08/24 Unknown History
solution
esomeprazole magnesium 40 mg 40 mg PO BID 06/08/24 06/08/24 Unknown History
capsule,delayed release (Nexium)
lorazepam 0.5 mg tablet 0.5 mg PO DAILYPRN PRN nausea 06/08/24 06/08/24 Unknown History
magnesium oxide 200 mg PO BID 06/08/24 06/08/24 Unknown History
olanzapine 2.5 mg tablet 2.5 mg PO BIDPRN PRN mental health 06/08/24 06/08/24 Unknown History
ondansetron 4 mg disintegrating 4 mg PO DAILYPRN PRN nausea 06/08/24 06/08/24 Unknown History
tablet
oxycodone 10 mg tablet 20 mg PO Q3HPRN PRN severe pain 06/08/24 06/08/24 Unknown History
polyethylene glycol 3350 17 gram 17 g PO DAILYPRN PRN constipation 06/08/24 06/08/24 Unknown History
oral powder packet (Miralax)
prednisone 10 mg tablet 10 mg PO DAILY 06/08/24 06/08/24 Unknown History
sennosides 8.6 mg tablet (senna) 8.6 mg PO DAILYPRN PRN constipation 06/08/24 06/08/24 Unknown History
sertraline 50 mg tablet 50 mg PO QPM 06/08/24 06/08/24 Unknown History
Active Medications
Generic Name Dose Route Start Last Admin
Trade Name Freq PRN Reason Stop Dose Admin
Acetaminophen 1,000 mg 06/09/24 08:00 06/11/24 09:53
Acetaminophen 500 Mg Tablet PO 07/07/24 07:59 1,000 mg
TID RYAN Administration
Baclofen 10 mg 06/11/24 10:03
Baclofen 5 Mg Tablet PO 07/06/24 23:05
DAILYPRN PRN
back pain
Bisacodyl 10 mg 06/08/24 23:06
Bisacodyl 10 Mg Rectal Suppository RECTAL 07/06/24 23:05
[id number] PRN
constipation
Dexamethasone Sodium Phosphate 4 mg 06/11/24 11:00
Dexamethasone 4 Mg/Ml 1 Ml Vial IV 07/09/24 10:59
Q6H RYAN
Diazepam 2 mg 06/09/24 02:22 06/10/24 17:27
Diazepam 10 Mg/2 Ml Inj IV 07/07/24 02:21 2 mg
Q6HPRN PRN Administration
pain/muscle spasm
Heparin Sodium (Porcine) 500 unit 06/09/24 21:15 06/10/24 01:41
Heparin Flush Pf (100 Unit/Ml) 5 Ml Syringe IV 07/07/24 21:14 500 unit
PER PROTOCOL RYAN Administration
Hydromorphone HCl 1 mg 06/08/24 23:06 06/11/24 06:11
Hydromorphone 1 Mg/Ml Carpuject IV 06/22/24 23:05 1 mg
Q4HPRN PRN Administration
severe pain
Ibuprofen 800 mg 06/10/24 13:00 06/11/24 09:53
Ibuprofen 800 Mg Tablet PO 07/08/24 12:59 800 mg
QID RYAN Administration
Lidocaine 1 patch 06/08/24 22:10 06/10/24 22:22
Lidocaine 4% Topical Patch TOPICAL 07/06/24 22:09 1 patch
HS RYAN Administration
Protocol
Lorazepam 0.5 mg 06/08/24 23:06
Lorazepam 0.5 Mg Tablet PO 07/06/24 23:05
DAILYPRN PRN
nausea
Magnesium Oxide 250 mg 06/09/24 08:00 06/11/24 09:52
Magnesium Oxide 500 Mg Tablet PO 07/07/24 07:59 250 mg
BID RYAN Administration
Miconazole Nitrate 0 applic 06/10/24 08:00 06/10/24 20:11
Miconazole Powder Bottle TOPICAL 07/08/24 07:59 1 applic
BID RYAN Administration
Olanzapine 2.5 mg 06/08/24 23:06
Olanzapine 2.5 Mg Tablet PO 07/06/24 23:05
BIDPRN PRN
mental health
Oxycodone HCl 20 mg 06/09/24 09:15 06/10/24 20:19
Oxycodone 10 Mg Regular Release Tablet PO 06/23/24 09:14 20 mg
Q3HPRN PRN Administration
moderate pain
Oxycodone HCl 20 mg 06/10/24 11:00 06/10/24 23:39
Oxycontin 20 Mg Controlled Release Tablet PO 06/24/24 10:59 20 mg
Q12H RYAN Administration
Pantoprazole Sodium 40 mg 06/11/24 09:00 06/11/24 10:00
Pantoprazole 40 Mg Delayed Release Tablet PO 07/09/24 08:59 40 mg
BID RYAN Administration
Patch Removal 1 patch 06/09/24 10:00 06/10/24 09:04
Remove Lidocaine Patch REMOVE 07/07/24 09:59 1 patch
DAILY@1000 RYAN Administration
Polyethylene Glycol 17 grams 06/09/24 09:20 06/10/24 08:22
Polyethylene Glycol Powder 17 Grams Packet PO 07/07/24 09:19 Not Given
DAILY RYAN
Prednisone 10 mg 06/09/24 08:00 06/11/24 09:53
Prednisone 10 Mg Tablet PO 07/07/24 07:59 10 mg
DAILY RYAN Administration
Senna/Docusate Sodium 1 tablet 06/09/24 09:20 06/10/24 20:13
Docusate W/Senna (Luzma-Colace) Tablet PO 07/07/24 09:19 Not Given
BID RYAN
Sertraline HCl 50 mg 06/09/24 00:00 06/10/24 17:27
Sertraline 50 Mg Tablet PO 07/07/24 00:00 50 mg
QPM RYAN Administration
Sodium Chloride 0 flush 06/08/24 23:00
Sodium Chloride 0.9% (Flush) Syringe IV 07/06/24 22:59
PER PROTOCOL RYAN
Review of Systems
-
ROS is notable for HPI, otherwise negative
Physical Exam
-
General: No Apparent Distress
HEENT: Moist Mucous Membranes; Negative Jaundice
Cardiology: Normal Sinus Rhythm and No Murmur
Pulmonary: Clear
GI: Soft
Extremities: Pulses Present; Negative Edema
Skin: Warm
Psych: Calm
Labs
Lab Results
WBC 9.6 10^3/uL (4.8-10.8) 06/09/24 04:45
RBC 3.24 10^6/uL (4.70-6.10) L 06/09/24 04:45
Hgb 9.8 g/dL (13.0-18.0) L 06/09/24 04:45
Hct 28.9 % (39.0-52.0) L 06/09/24 04:45
MCV 89.2 fL (80.0-94.0) 06/09/24 04:45
MCH 30.2 pg (27.0-31.0) 06/09/24 04:45
MCHC 33.9 g/dL (33.0-37.0) 06/09/24 04:45
RDW 16.7 % (11.5-14.5) H 06/09/24 04:45
Plt Count 228 10^3/uL (130-400) 06/09/24 04:45
MPV 8.6 fL (7.4-10.4) 06/09/24 04:45
Abs Immat Gran (auto) 0.1 10^3/uL (0-0.05) H 06/08/24 18:08
Absolute Neuts (auto) 10.0 10^3/uL (1.4-6.5) H 06/08/24 18:08
Absolute Lymphs (auto) 1.3 10^3/uL (1.2-3.4) 06/08/24 18:08
Absolute Monos (auto) 0.6 10^3/uL (0.1-0.6) 06/08/24 18:08
Absolute Eos (auto) 0.0 10^3/uL (0-0.7) 06/08/24 18:08
Absolute Basos (auto) 0.0 10^3/uL (0-0.2) 06/08/24 18:08
Immature Gran % 0.5 % (0-0.5) 06/08/24 18:08
Neutrophils % 83.3 % (42.2-75.2) H 06/08/24 18:08
Lymphocytes % 10.7 % (20.5-51.1) L 06/08/24 18:08
Monocytes % 5.1 % (1.7-9.3) 06/08/24 18:08
Eosinophils % 0.2 % (0-6) 06/08/24 18:08
Basophils % 0.2 % (0-2) 06/08/24 18:08
Creatinine 0.7 mg/dL (0.7-1.3) 06/09/24 04:45
Vital Signs
Vital Signs
Temp Pulse Resp BP Pulse Ox
97.9 F 56 17 98/59 95
06/11/24 07:05 06/11/24 07:05 06/11/24 07:05 06/11/24 07:05 06/11/24 07:05
[2024-06-11] MEDS: MIRALAX PO (10:11)
[2024-06-11] MEDS: SENOKOT-S PO ×2 (10:12→21:10)
[2024-06-11] MEDS: NON-FORMULARY ITEM PO (10:16)
[2024-06-11] MEDS: OXYCONTIN (CONTROLLED RELEASE) 20 MG PO ×2 (11:56→23:07)
[2024-06-11] MEDS: DECADRON 4 MG IV ×3 (12:04→23:06)
[2024-06-11] MEDS: DESENEX/MITRAZOL/ZEASORB 1 APPLIC TOPICAL ×2 (12:09→21:11)
[2024-06-11] MEDS: VALIUM INJECTION 2 MG IV (12:13)
[2024-06-11 12:30] VITALS: BP 112/55
[2024-06-11 12:39] LABS: Iron 24 ug/dl (49-181)
[2024-06-11 12:48] LABS: Percent Saturation 13 % (20-50); Total Iron Binding Capacity 175 ug/dl (261-462)
--- NOTE | 2024-06-11 12:57 | CM ---
Patient and seen at bedside. Patient requested review of options. Patient stated that all discharge planning pending pain management and ability to walk to bathroom per . Patient family requesting referral to [facility] for Plan A.
Plan B would be going to [facility] if patient able to tolerate 3 hours of therapy.
Plan C would be going home with [facility] if patient able to walk to bathroom and pain management was appropriate to patient family/physicians.
CM sent referrals to SNF options and await responses. CM will continue to follow for discharge planning needs.
Plan; SNF vs Acute rehab vs home with [facility]; pending level of function/medical treatment plan
--- NOTE | 2024-06-11 13:00 | PTCARENOTE ---
Pt requested PRN Valium for pain and spasms. Medication administered. Immediately following administration, pt slouched over in bed and fell asleep. Pt arousable to tactile stimuli but lethargic. Pt's stated 'this happens when he gets valium.'
BP 112/55, HR 63, 97.7F, 91% on RA, RR 13. MD notified and medication d/c. Will continue to monitor.
[2024-06-11 13:28] VITALS: BP 111/56
[2024-06-11 14:59] VITALS: BP 93/49
[2024-06-11 16:40] VITALS: BP 96/54
[2024-06-11] MEDS: ZOLOFT 50 MG PO (17:02)
[2024-06-11] MEDS: ROXICODONE 20 MG PO (18:41)
[2024-06-11] MEDS: LIDOCAINE 4% PATCH 1 PATCH TOPICAL (21:09)
[2024-06-11] MEDS: NON-FORMULARY ITEM 40 MG PO (21:11)
[2024-06-11 23:00] VITALS: BP 101/63
[2024-06-12] MEDS: DILAUDID 1 MG IV ×5 (02:02→22:21)
[2024-06-12] MEDS: DECADRON 4 MG IV ×4 (05:51→23:23)
[2024-06-12 07:27] LABS: Folate 5.2 ng/ml (2.76-20); Vitamin B12 508 pg/ml (239-931)
[2024-06-12 07:53] VITALS: BP 113/62
[2024-06-12] MEDS: TYLENOL 1000 MG PO ×3 (07:58→21:09)
[2024-06-12] MEDS: MAGNESIUM OXIDE 250 MG PO ×2 (07:59→21:12)
[2024-06-12] MEDS: ROXICODONE 20 MG PO (08:00)
[2024-06-12] MEDS: MIRALAX PO (08:01)
[2024-06-12] MEDS: SENOKOT-S PO ×2 (08:02→21:10)
[2024-06-12] MEDS: NON-FORMULARY ITEM 40 MG PO ×2 (08:02→21:15)
[2024-06-12] MEDS: DESENEX/MITRAZOL/ZEASORB 1 APPLIC TOPICAL ×2 (08:03→21:15)
[2024-06-12] MEDS: MOTRIN 800 MG PO ×4 (08:10→21:08)
[2024-06-12] MEDS: FLUSH (NSS) 2 FLUSH IV ×3 (10:30→18:00)
[2024-06-12 11:20] VITALS: BP 114/66; PULSE 70; O2SAT 94
[2024-06-12] MEDS: OXYCONTIN (CONTROLLED RELEASE) PO (11:24)
[2024-06-12] MEDS: OXYCONTIN (CONTROLLED RELEASE) 40 MG PO ×2 (11:46→23:23)
[2024-06-12 12:08] VITALS: BP 114/66; PULSE 70; O2SAT 94
--- NOTE | 2024-06-12 13:01 | W.PN.HOSP.TC ---
Today's Communication/Plan
-
Increase OxyContin
Bowel regimen
Assessment / Plan
Assessment / Plan
Gen-AAOx3, NAD
HEENT-NC, AT, anicteric, clear oral mm
Neck-supple
CV-reg, no M, +S1/S2
Lungs-clear B/L
Abd-soft, NT, ND
Ext-no edema
Musculoskeletal-no cyanosis, clubbing
Skin-warm and dry
Neuro-grossly non-focal
Psych-calm, cooperative
Intractable pain syndrome -suspect related to lumbar vertebral compression fractures. Lumbar x-ray noted. Fractures involving L1 and L3 vertebrae. Suspect fractures related to underlying osteoporosis. Less likely due to metastatic esophageal
cancer. Patient denies fall or trauma.
Continue oxycodone 20 mg every 3 hours as needed, increase OxyContin to 40 mg every 12 hours. Discussed with patient and . IV Dilaudid for intractable pain. Continue ibuprofen [id number].
Bowel regimen. No bowel movement so far in the hospital.
L3 pathologic fracture -noted on lumbar MRI. [place] to be due to metastatic esophageal cancer. Oncology input noted. IV steroids initiated. Eventual palliative radiation treatments to the spine.
Patient does not qualify for acute rehab and therefore cannot transfer to [facility] for rehab and radiation treatment.
Metastatic esophageal cancer -on treatment by [facility] oncology. Does have some dysphagia. Speech therapy recommends regular solids, thin liquids.
Constipation -due to opioids and limited mobility. Patient refusing doses of MiraLAX.
Crohn's disease -on prednisone chronically.
Hypomagnesemia -improved.
Normocytic anemia -suspect chronic and related to malignancy. Monitor for now. Baseline hemoglobin unknown. Iron panel consistent with chronic disease.
Anxiety disorder
Full code
Dispo -SNF versus home care on discharge. Patient and family to decide by tomorrow.
updated at the bedside.
Anticipated Discharge: Within 24 hours
Subjective/Interval History
-
Date of Service: June 12, 2024
Patient seen and examined. Pain is improving overall.
Objective Data
-
Vital Signs:
Vital Signs
Temp Pulse Resp BP Pulse Ox
97.6 F 57 14 113/62 96
06/12/24 07:53 06/12/24 07:53 06/12/24 07:53 06/12/24 07:53 06/12/24 07:53
I&O
06/11/24 06/12/24 06/13/24
06:59 06:59 06:59
Intake Total 480 / 480 1080 / 1080 120 / 120
Output Total 750 / 750 200 / 200 350 / 350
Balance -270 / -270 880 / 880 -230 / -230
Review of Systems
-
History Source: Patient
All other systems: Reviewed and negative
--- NOTE | 2024-06-12 13:15 | W.PN.ONC2 ---
Today's Communication / Plan
-
Clinically stable, pain medication being adjusted.
We will see 06/15 unless questions arise over the weekend, please call if so.
Impression
Impression
Stage IV esophageal cancer on immunotherapy with Dr. Kulkarni at [facility]
Intractable back pain likely from compression fracture of the L3 vertebral body, expansile mass noted
Single tests
Constipation
Cancer-related pain
Question of interstitial lung disease from [facility]
Plan
Plan
Dexamethasone 4mg q6 - PPI while on steroid, tight glycemic control while on steroids
Decrease baclofen to 5mg prn at pt/ request as 10 mg has been too sedating in the past
Eventual outpatient XRT to L3
Pain management - suggest decrease in or discontinuation of Motrin and patient on steroids and at risk for peptic ulcer disease. Also, patient feels it is not helping.
Bowel regimen while on narcotics - Miralax ordered
Iron studies, b12, folate levels are without evidence of substrate deficiency
Speech therapy
If needs SNF vs rehab at d/c consider [facility] to facilitate XRT to L3 d/w hospitalist & case management
[facility] chest CT [facility] This was planned for the outpatient setting on June 17 with intention of determining whether he could resume [facility].
Dr. Perez discussed case with primary oncologist, Dr. Kulkarni and Radiation oncology.
at bedside provided with updates and questions answered
Subjective/Objective
Chief Complaint
Heme/Onc F/U esophageal cancer, anemia
Subjective
Pain not well controlled, states Dilaudid is the only one that works. His other medications include dexamethasone 4 mg every 6 hours, Motrin 800 mg 4 times daily, OxyContin 20 mg every 12 hours and Lidoderm patch. He has not had single to's since
hospital admission but feels that it may be coming on. His states that he becomes overly sedated on 10 mg of baclofen, has better tolerance of 5 mg. Has not moved bowels, intending to ask for MiraLAX. He states he usually alternates between
constipation and diarrhea in the setting of active Crohn's disease.
Vital Signs:
Vital Signs
Temp Pulse Resp BP Pulse Ox
97.6 F 57 14 113/62 96
06/12/24 07:53 06/12/24 07:53 06/12/24 07:53 06/12/24 07:53 06/12/24 07:53
Lab Results:
Laboratory Data
WBC 9.6 10^3/uL (4.8-10.8) 06/09/24 04:45
Hgb 9.8 g/dL (13.0-18.0) L 06/09/24 04:45
Plt Count 228 10^3/uL (130-400) 06/09/24 04:45
eGFR > 60.00 06/09/24 04:45
Physical Exam
HEENT: Other (appeals pale); No Jaundice or Moist Mucous Membranes
Cardiology: Normal Sinus Rhythm, S1 and S2
Pulmonary: Clear; No Wheezes
GI: Soft and Normal Bowel Sounds
Extremities: No C/C/E
Neuro: Non Focal
Review of Systems
Review of Systems
Constitutional: Reports Fatigue; Denies Fever
Head: Denies Sore Throat or Hearing Loss
Respiratory: Denies Dyspnea or Cough
Cardiovascular: Denies Chest Pain or Palpitations
Gastrointestinal: Reports Other (constipation); Denies Nausea/Vomiting or Diarrhea
Genitourinary: Denies Hematuria
Skin: Denies Rash or Pruritis
Neurological: Denies Headache or Numbness
Psychiatric: Denies Depression or Insomnia
Hem/Lymphatic: Denies Easy Bruising or Night Sweats
[2024-06-12] MEDS: LIORESAL 10 MG PO (13:20)
[2024-06-12 15:21] VITALS: BP 93/52
--- NOTE | 2024-06-12 16:57 | PTCARENOTE ---
patient has received PRN Roxicodone at 0800 and PRN Dilaudid at 1022. both with good relief. then Oycontin increased to 40mgs po q12 hours and patient started on new dose. he was able to tolerating sitting oob till 1320 and then requested PRN
Baclofen for excessive belching with good relief. transferring oob with rolling walker to BR. gait steady but very slow. vss, will continue to monitor.
[2024-06-12] MEDS: ZOLOFT 50 MG PO (17:53)
[2024-06-12] MEDS: LIDOCAINE 4% PATCH 1 PATCH TOPICAL (21:11)
[2024-06-12 23:37] VITALS: BP 114/65
[2024-06-13] MEDS: DECADRON 4 MG IV ×4 (05:34→23:53)
[2024-06-13] MEDS: DILAUDID 1 MG IV ×2 (05:35→18:02)
[2024-06-13 07:35] VITALS: BP 119/69
[2024-06-13] MEDS: TYLENOL 1000 MG PO ×3 (08:25→21:03)
[2024-06-13] MEDS: ROXICODONE 20 MG PO ×2 (08:25→15:10)
[2024-06-13] MEDS: MAGNESIUM OXIDE 250 MG PO ×2 (08:25→21:02)
[2024-06-13] MEDS: MIRALAX PO (08:26)
[2024-06-13] MEDS: MOTRIN 800 MG PO (08:26)
[2024-06-13] MEDS: SENOKOT-S PO ×2 (08:26→21:04)
[2024-06-13] MEDS: NON-FORMULARY ITEM 1 MG PO (08:28)
[2024-06-13] MEDS: DESENEX/MITRAZOL/ZEASORB 1 APPLIC TOPICAL ×2 (08:28→21:06)
--- NOTE | 2024-06-13 11:10 | W.PN.HOSP.TC ---
Today's Communication/Plan
-
Discharge
Assessment / Plan
Assessment / Plan
Gen-AAOx3, NAD
HEENT-NC, AT, anicteric, clear oral mm
Neck-supple
CV-reg, no M, +S1/S2
Lungs-clear B/L
Abd-soft, NT, ND
Ext-no edema
Musculoskeletal-no cyanosis, clubbing
Skin-warm and dry
Neuro-grossly non-focal
Psych-calm, cooperative
Intractable pain syndrome -suspect related to lumbar vertebral compression fractures. Lumbar x-ray noted. Fractures involving L1 and L3 vertebrae. Suspect fractures related to underlying osteoporosis. Less likely due to metastatic esophageal
cancer. Patient denies fall or trauma.
Continue OxyContin to 40 mg every 12 hours. Can stop ibuprofen at this point given use of IV steroids. Discussed with oncology, change to Decadron p.o. on discharge at same dose.
Reportedly moved his bowels yesterday. Although, I do not see it documented in [facility].
L3 pathologic fracture -noted on lumbar MRI. [place] to be due to metastatic esophageal cancer. Oncology input noted. IV steroids initiated. Eventual palliative radiation treatments to the spine.
Patient does not qualify for acute rehab and therefore cannot transfer to [facility] for rehab and radiation treatment.
Metastatic esophageal cancer -on treatment by [facility] oncology. Does have some dysphagia. Speech therapy recommends regular solids, thin liquids.
Constipation -due to opioids and limited mobility. Patient refusing doses of MiraLAX.
Crohn's disease -on prednisone chronically.
Hypomagnesemia -improved.
Normocytic anemia -suspect chronic and related to malignancy. Monitor for now. Baseline hemoglobin unknown. Iron panel consistent with chronic disease.
Anxiety disorder
Full code
Dispo -case management reports that bed is available at [facility] for today. Medically stable for discharge.
updated at the bedside.
Anticipated Discharge: Today
Subjective/Interval History
-
Date of Service: June 13, 2024
Patient seen and examined. Pain is well-controlled. No complaints.
Objective Data
-
Vital Signs:
Vital Signs
Temp Pulse Resp BP Pulse Ox
97.3 F 55 17 119/69 96
06/13/24 07:35 06/13/24 07:35 06/13/24 07:35 06/13/24 07:35 06/13/24 07:35
I&O
06/12/24 06/13/24 06/14/24
06:59 06:59 06:59
Intake Total 1080 / 1080 600 / 600
Output Total 200 / 200 1200 / 1200
Balance 880 / 880 -600 / -600
Review of Systems
-
History Source: Patient
All other systems: Reviewed and negative
[2024-06-13] MEDS: OXYCONTIN (CONTROLLED RELEASE) 40 MG PO ×2 (11:12→23:50)
--- NOTE | 2024-06-13 12:19 | CM ---
Addendum entered by Deandra Dorado 06/13/24 14:15:
Additional SNF referrals sent to [facility] and call placed to [facility] to check if a private room is available. No response from either facility today.
does not feel prepared for discharge to home, but not agreeable to available bed at [facility]. Pt's provided with list of private caregiver services in the event she takes [facility] home; CM offered home care services; also noted she will enlist
family to assist at home, as well.
does not feel prepared for discharge to home, but not agreeable to available bed at [facility]. Private transport service resource information provided as requested.
Plan: TBD, as currently is not agreeable to discharge, but does not want to call for appeal.
Original Note:
CM met with pt and today to discuss discharge; pt is ready for discharge today. Bed available at [facility] in [place], however due to pt's immunocompromised state, pt/ are adamant that he have a private room. [facility] does not have a
private room available.
IMM reviewed with patient and ; form signed and placed on chart.
reports plan for outpatient XRT and is asking for ambulance transport to/from XRT which per is scheduled for next week. CM to provide resources for same.
[2024-06-13 15:05] VITALS: BP 114/61
--- NOTE | 2024-06-13 15:37 | PTCARENOTE ---
PT with a tremendous amount of pain this shift. He clamps down and becomes very rigid with trouble talking. Pt given Dilaudid and oxy in addition to arc oxycodone BID. The patient did have good relief with prn medications. looking back in last 24
hours, the patient had best relief after 11 am 11 pm with IV dilaudid and ATC. Education was given to family that in order to go home, pt cannot be on IV dilaudid. pt and family willing to try PRN PO oxy instead of the IV dilaudid. did write
for DC, pt told me he was not ready and very frightened to go because his pain is not good yet. was concerned about pain managment the depth of his weakness. PT was able to get OOB and go to bathroom with walker and two assist. His pain was
excruciating but he did move slowly, safely with tremendous amount of queing. he was strong enough to do it, it took 5 minutes to transition from bed to stand and another 4 minutes to reach the bathroom. PT OT on board. PT is very lethargic when
undisturbed.
--- NOTE | 2024-06-13 15:49 | CM ---
CM met with pt's again this afternoon. In the event a private room in SNF is not available, we spoke about hiring private caregiver services and a list of same was provided to pt's . Skilled home care services also discussed in addition
to the hired caregiver, as well as a commode and possibly a hospital bed.
Discharge order was placed today, however pt's is adamant that with his level of pain, it is not realistic for her to take him home without additional resources in place to help.
Plan: CM will continue to follow to coordinate all discharge planning needs.
[2024-06-13] MEDS: LIORESAL 10 MG PO (16:26)
[2024-06-13] MEDS: ZOLOFT 50 MG PO (18:02)
[2024-06-13] MEDS: LIDOCAINE 4% PATCH 1 PATCH TOPICAL (21:02)
[2024-06-13] MEDS: NON-FORMULARY ITEM 40 MG PO (21:06)
[2024-06-13 23:00] VITALS: BP 127/70
[2024-06-14] MEDS: DECADRON 4 MG IV ×4 (05:51→23:46)
[2024-06-14 07:05] VITALS: BP 141/76
[2024-06-14] MEDS: ROXICODONE 20 MG PO ×2 (08:00→18:35)
[2024-06-14] MEDS: MIRALAX 17 GRAMS PO (08:00)
[2024-06-14] MEDS: MAGNESIUM OXIDE 250 MG PO ×2 (08:01→20:20)
[2024-06-14] MEDS: DESENEX/MITRAZOL/ZEASORB 1 APPLIC TOPICAL ×2 (08:01→20:18)
[2024-06-14] MEDS: TYLENOL 1000 MG PO ×3 (08:01→22:09)
[2024-06-14] MEDS: SENOKOT-S 1 TABLET PO (08:01)
[2024-06-14] MEDS: NON-FORMULARY ITEM PO (08:18)
[2024-06-14] MEDS: DILAUDID 1 MG IV (09:44)
--- NOTE | 2024-06-14 10:35 | W.PN.HOSP.TC ---
Today's Communication/Plan
-
Increase OxyContin
Continue PT/OT
Bowel regimen
Discharge planning
Assessment / Plan
Assessment / Plan
Gen-AAOx3, NAD
HEENT-NC, AT, anicteric, clear oral mm
Neck-supple
CV-reg, no M, +S1/S2
Lungs-clear B/L
Abd-soft, NT, ND
Ext-no edema
Musculoskeletal-no cyanosis, clubbing
Skin-warm and dry
Neuro-grossly non-focal
Psych-calm, cooperative
Intractable pain syndrome -suspect related to lumbar vertebral compression fractures. Lumbar x-ray noted. Fractures involving L1 and L3 vertebrae. Suspect fractures related to underlying osteoporosis. Less likely due to metastatic esophageal
cancer. Patient denies fall or trauma.
Increase OxyContin to 60 mg every 12 hours. Continue Oxy IR as needed. Limit use of IV Dilaudid. Discussed with patient and nursing. Continue IV steroids per oncology.
L3 pathologic fracture -noted on lumbar MRI. [place] to be due to metastatic esophageal cancer. Oncology input noted. IV steroids initiated. Eventual palliative radiation treatments to the spine.
Patient does not qualify for acute rehab and therefore cannot transfer to [facility] for rehab and radiation treatment.
Metastatic esophageal cancer -on treatment by [place] oncology. Does have some dysphagia. Speech therapy recommends regular solids, thin liquids.
Constipation -due to opioids and limited mobility. Reportedly had a blood-tinged bowel movement this morning according to nurse. This is normal for him with his underlying Crohn's.
Crohn's disease -on prednisone chronically.
Hypomagnesemia -improved.
Normocytic anemia -suspect chronic and related to malignancy. Monitor for now. Baseline hemoglobin unknown. Iron panel consistent with chronic disease.
Anxiety disorder
Full code
Dispo -patient and are still contemplating SNF versus home. If he goes to SNF, is adamant that he have an isolation room due to her concerns over his immunosuppression and risk of infection transmission.
updated at the bedside.
Anticipated Discharge: 24 - 48 hours
Subjective/Interval History
-
Date of Service: June 14, 2024
Patient seen and examined. Complaining of severe back pain with mobility.
Objective Data
-
Vital Signs:
Vital Signs
Temp Pulse Resp BP Pulse Ox
97.6 F 54 17 141/76 97
06/14/24 07:05 06/14/24 07:05 06/14/24 07:05 06/14/24 07:05 06/14/24 07:05
I&O
06/13/24 06/14/24 06/15/24
06:59 06:59 06:59
Intake Total 600 / 600 180 / 180
Output Total 1200 / 1200
Balance -600 / -600 180 / 180
Review of Systems
-
History Source: Patient
All other systems: Reviewed and negative
[2024-06-14 11:10] VITALS: BP 128/69; PULSE 57; O2SAT 96
[2024-06-14] MEDS: OXYCONTIN (CONTROLLED RELEASE) 60 MG PO ×2 (11:52→23:45)
--- NOTE | 2024-06-14 13:48 | CM ---
Addendum entered by Deandra Dorado 06/14/24 16:20:
[facility] responded in [facility] - will consider after review on Saturday. [facility] referral sent; await response.
Original Note:
CM met with pt's to review discharge plan. Per , if a private room cannot be found at a suitable facility, she will take him home. Pt is know to [facility] per .
Asking for [facility] to be considered; unable to reach admissions at [facility], however [facility]; [facility] referral sent yesterday. Pt is know to [facility] per . Caregiver list provided
previously and considering hiring assistance if discharged directly home. also provided with options for stretcher transport to/from [facility] which per will be started next week.
Plan: Discharge to SNF (only if private room) vs. discharge to home with [facility] and private caregivers.
[2024-06-14 15:05] VITALS: BP 125/76
[2024-06-14] MEDS: ZOLOFT 50 MG PO (18:21)
[2024-06-14] MEDS: NON-FORMULARY ITEM 40 MG PO (20:19)
[2024-06-14] MEDS: SENOKOT-S PO (20:30)
[2024-06-14] MEDS: LIDOCAINE 4% PATCH TOPICAL (22:20)
[2024-06-14 23:00] VITALS: BP 140/69
[2024-06-15] MEDS: ROXICODONE 20 MG PO (04:07)
[2024-06-15] MEDS: DECADRON 4 MG IV ×3 (05:37→18:16)
[2024-06-15 07:05] VITALS: BP 129/80
[2024-06-15 08:28] LABS: % Basophils 0.1 % (0-2); % Lymphocytes 8.4 % (20.5-51.1); % Neutrophils 87.5 % (42.2-75.2); Absolute Immature Granulocytes 0.1 10^3/uL (0-0.05); Absolute Lymphocytes 0.8 10^3/uL (1.2-3.4); Absolute Monocytes 0.3 10^3/uL (0.1-0.6); Absolute Neutrophils 8.4 10^3/uL (1.4-6.5); Hematocrit 27.2 % (39.0-52.0); Mean Corp Hgb Conc. 33.1 g/dL (33.0-37.0); Mean Corpuscular Volume 90.7 fL (80.0-94.0); Mean Platelet Volume 8.9 fL (7.4-10.4); Nucleated Red Blood Cells % 0 % (-); Platelet Count 275 10^3/uL (130-400); Red Cell Dist. Width 15.8 % (11.5-14.5); White Blood Cell Count 9.6 10^3/uL (4.8-10.8)
[2024-06-15] MEDS: TYLENOL 1000 MG PO ×3 (08:33→22:05)
[2024-06-15] MEDS: MAGNESIUM OXIDE 250 MG PO ×2 (08:34→20:26)
[2024-06-15] MEDS: NON-FORMULARY ITEM 40 MG PO ×2 (08:36→18:24)
[2024-06-15] MEDS: SENOKOT-S PO ×2 (08:37→20:27)
[2024-06-15] MEDS: MIRALAX PO (08:37)
[2024-06-15] MEDS: DESENEX/MITRAZOL/ZEASORB 1 APPLIC TOPICAL ×2 (08:38→20:28)
[2024-06-15] MEDS: FLUSH (NSS) 2 FLUSH IV (08:43)
[2024-06-15] MEDS: DILAUDID 1 MG IV ×3 (08:44→20:24)
--- NOTE | 2024-06-15 10:33 | W.PN.HOSP.TC ---
Today's Communication/Plan
-
see A/P
Assessment / Plan
Assessment / Plan
Gen-AAOx3, NAD
HEENT-NC, AT, anicteric, clear oral mm
Neck-supple
CV-reg, no M, +S1/S2
Lungs-clear B/L
Abd-soft, NT, ND
Ext-no edema
Musculoskeletal-no cyanosis, clubbing
Skin-warm and dry
Neuro-grossly non-focal
Psych-calm, cooperative
A/P:
# Intractable pain syndrome suspect related to lumbar vertebral compression fractures.
Lumbar x-ray noted. Fractures involving L1 and L3 vertebrae. Suspect fractures related to underlying osteoporosis. Less likely due to metastatic esophageal cancer.
Patient denies fall or trauma.
Increase OxyContin to 60 mg every 12 hours. Continue Oxy IR as needed. Limit use of IV Dilaudid. Discussed with patient and nursing.
Continue IV steroids per oncology. Dosing adjustment per onc.
# L3 pathologic fracture noted on lumbar MRI. [place] to be due to metastatic esophageal cancer.
Oncology input noted. IV steroids initiated (see above). Eventual palliative radiation treatments to the spine.
Patient does not qualify for acute rehab and therefore cannot transfer to [facility] for rehab and radiation treatment.
# Metastatic esophageal cancer on treatment by [place] oncology.
Does have some dysphagia.
Speech therapy recommends regular solids, thin liquids.
requesting gentle IVF in fear of pt developing dehydration, OK with gentle IVF NSS 40 cc/hr
# Constipation due to opioids and limited mobility.
Reportedly had a blood-tinged bowel movement according to nurse. This is normal for him with his underlying Crohn's.
# Crohn's disease on prednisone chronically.
# Hypomagnesemia -improved.
# Normocytic anemia -suspect chronic and related to malignancy.
Monitor for now. Baseline hemoglobin unknown.
Iron panel consistent with chronic disease.
# Anxiety disorder
Full code
Dispo -patient and are still contemplating SNF versus home. If he goes to SNF, is adamant that he have an isolation room due to her concerns over his immunosuppression and risk of infection transmission.
d/w at the bedside.
d/w CM
total time spent 51 min
Anticipated Discharge: Within 24 hours
Subjective/Interval History
-
Date of Service: June 15, 2024
Objective Data
-
Labs:
Laboratory Results
06/15/24
07:37
WBC 9.6
Hgb 9.0 L
Hct 27.2 L
Plt Count 275 D
Vital Signs:
Vital Signs
Temp Pulse Resp BP Pulse Ox
36.5 C 50 17 129/80 96
06/15/24 07:05 06/15/24 07:05 06/15/24 07:05 06/15/24 07:05 06/15/24 07:05
I&O
06/14/24 06/15/24 06/16/24
06:59 06:59 06:59
Intake Total 180 / 180 1200 / 1200
Output Total 150 / 150
Balance 180 / 180 1050 / 1050
Review of Systems
-
History Source: Patient
All other systems: Reviewed and negative
Musculoskeletal: Reports Other (lower back pain)
Data Reviewed
-
Labs: Labs Reviewed by me
[2024-06-15] MEDS: NSS 1000 IV (12:08)
[2024-06-15] MEDS: OXYCONTIN (CONTROLLED RELEASE) 60 MG PO (12:08)
--- NOTE | 2024-06-15 12:23 | W.PN.ONC2 ---
Addendum entered and electronically signed by Neeru Batista MD 06/15/24 18:01:
Case d/w IR. Poor candidate for vertebroplasty due to significant retropulsion of fracture fragments causing central canal narrowing and severe narrowing of left lateral recess. Recommendation is for neurosurgery eval.
Surgery would likely need to be done at either [place] or [facility].
Case d/w Dr. Kulkarni, he cannot accept pt, we need to go through the transfer center if pt wants transfer to [facility].
Will cancel IR consult.
Agree with consulting Neurosurgery here.
Original Note:
Today's Communication / Plan
-
Consult IR for vertebroplasty
No change to steroid regimen for now with pain uncontrolled.
Impression
Impression
Stage IV esophageal cancer on immunotherapy with Dr. Kulkarni at [facility]
Intractable back pain likely from compression fracture of the L3 vertebral body, expansile mass noted
Constipation
[facility]
Plan
Plan
Dexamethasone 4mg q6 - PPI while on steroid, tight glycemic control while on steroids.
Would NOT yet transition to oral regimen with pain not yet controlled.
Pt/ previously requested decrease in baclofen to 5mg prn as 10 mg has been too sedating in the past
Eventual outpatient XRT to L3
Suggest IR consult for possible vertebroplasty as pain remains poorly controlled.
Bowel regimen while on narcotics - Miralax ordered
Iron studies, b12, folate levels are without evidence of substrate deficiency
Not a candidate for acute rehab so not an option to send to [facility] for radiation.
Consider chest CT to reevaluate interstitial lung disease from [facility]. This was planned for the outpatient setting on June 17 with intention of determining whether [facility]
I d/w Dr. Kulkarni today, no objection to IR consult here for vertebroplasty. It also remains an option to transfer to [facility].
at bedside provided with updates and questions answered
Subjective/Objective
Chief Complaint
Heme/Onc f/u regarding esophageal cancer, intractable pain from L3 compression fracture
Subjective
Pain still not controlled. Currently on dexamethasone 4 mg IV Q6h, Oxycontin 60 mg PO Q12h and lidoderm patch with IV dilaudid 1 mg, oxycodone 20 mg and Baclofen PRN beakthrough pain.
Vital Signs:
Vital Signs
Temp Pulse Resp BP Pulse Ox
97.7 F 50 17 129/80 96
06/15/24 07:05 06/15/24 07:05 06/15/24 07:05 06/15/24 07:05 06/15/24 07:05
Lab Results:
Laboratory Data
WBC 9.6 10^3/uL (4.8-10.8) 06/15/24 07:37
Hgb 9.0 g/dL (13.0-18.0) L 06/15/24 07:37
Plt Count 275 10^3/uL (130-400) D 06/15/24 07:37
eGFR > 60.00 06/09/24 04:45
Physical Exam
Awake, alert, mildly uncomfortable appearing lying in bed.
[2024-06-15 15:05] VITALS: BP 121/84
--- NOTE | 2024-06-15 16:02 | CM ---
Met with patient and
additional SNF referrals placed in careport per request
adamant of private room
Discussion with of SNF's do not transport to radiation
PLAN: SNF, pending private bed availability
[2024-06-15] MEDS: LIORESAL 10 MG PO (16:16)
--- NOTE | 2024-06-15 17:01 | PTCARENOTE ---
patient continues requiring PRN Dilaudid for left lower back pain and did discuss this with Dr. Silver this am while she made rounds on patient. Also, PRN Baclofen administered for frequently belching/hiccups with some relief. started on IVF's as
per his , he is not 'drinking as much'. did sit oob for short while. vss, will continue to monitor.
[2024-06-15] MEDS: ZOLOFT 50 MG PO (18:16)
[2024-06-15] MEDS: LIDOCAINE 4% PATCH TOPICAL (22:05)
[2024-06-15 23:15] VITALS: BP 134/79
[2024-06-16] MEDS: OXYCONTIN (CONTROLLED RELEASE) 60 MG PO ×3 (00:01→23:20)
[2024-06-16] MEDS: DECADRON 4 MG IV ×5 (00:01→23:18)
[2024-06-16] MEDS: DILAUDID 1 MG IV ×6 (01:41→23:19)
[2024-06-16] MEDS: LIDOCAINE 4% PATCH TOPICAL ×2 (03:55→22:28)
[2024-06-16 07:17] LABS: Blood Urea Nitrogen 45 mg/dl (9-20); Calcium 9.4 mg/dl (8.4-10.2); Carbon Dioxide 26 mmol/L (22-30); Chloride 104 mmol/L (98-107); Estimated Creatinine Clearance 79 ml/min; Glucose 98 mg/dl (70-99); Potassium 4.3 mmol/L (3.5-5.1); Sodium 137 mmol/L (135-145); eGFR > 60.00
[2024-06-16 07:38] VITALS: BP 143/76
[2024-06-16] MEDS: MAGNESIUM OXIDE 250 MG PO ×2 (08:13→21:08)
[2024-06-16] MEDS: TYLENOL 1000 MG PO ×3 (08:13→21:19)
[2024-06-16] MEDS: NON-FORMULARY ITEM 40 MG PO ×2 (08:15→21:15)
[2024-06-16] MEDS: DESENEX/MITRAZOL/ZEASORB 1 APPLIC TOPICAL ×2 (08:15→21:15)
[2024-06-16] MEDS: MIRALAX PO (08:16)
[2024-06-16] MEDS: SENOKOT-S PO (08:16)
--- NOTE | 2024-06-16 08:57 | W.PN.ONC2 ---
Today's Communication / Plan
-
.
Impression
Impression
Stage IV esophageal cancer on immunotherapy with Dr. Kulkarni at [facility]
Intractable back pain likely from compression fracture of the L3 vertebral body, expansile mass noted
Constipation
[facility]
anemia -Iron studies, b12, folate levels are without evidence of substrate deficiency
Plan
Plan
Case d/w IR by Dr. Batista 06/15- Poor candidate for vertebroplasty due to significant retropulsion of fracture fragments causing central canal narrowing and severe narrowing of left lateral recess
f/u neurosurgery consult -consider transfer to [facility] vs [facility]
Dexamethasone 4mg q6 - PPI while on steroid, tight glycemic control while on steroids.
baclofen to 5mg prn
Eventual outpatient XRT to L3
Bowel regimen while on narcotics
Not a candidate for acute rehab so not an option to send to [facility] for radiation.
Consider chest CT to [facility] This was planned for the outpatient setting on June 17 with intention of determining whether [facility]
at bedside provided with updates and questions answered
Subjective/Objective
Subjective
no new complaints
OOB to bathroom
Vital Signs:
Vital Signs
Temp Pulse Resp BP Pulse Ox
98.2 F 53 17 143/76 98
06/16/24 07:38 06/16/24 07:38 06/16/24 07:38 06/16/24 07:38 06/16/24 07:38
Lab Results:
Laboratory Data
WBC 9.6 10^3/uL (4.8-10.8) 06/15/24 07:37
Hgb 9.0 g/dL (13.0-18.0) L 06/15/24 07:37
Plt Count 275 10^3/uL (130-400) D 06/15/24 07:37
eGFR > 60.00 06/16/24 06:29
Physical Exam
HEENT: Moist Mucous Membranes; No Jaundice
Pulmonary: Clear
GI: Soft
Extremities: Pulses Present; No Edema
--- NOTE | 2024-06-16 10:42 | W.PN.HOSP.TC ---
Today's Communication/Plan
-
see A/P
Assessment / Plan
Assessment / Plan
Gen-AAOx3, NAD
HEENT-NC, AT, anicteric, clear oral mm
Neck-supple
CV-reg, no M, +S1/S2
Lungs-clear B/L
Abd-soft, NT, ND
Ext-no edema
Musculoskeletal-no cyanosis, clubbing
Skin-warm and dry
Neuro-grossly non-focal
Psych-calm, cooperative
A/P:
# Intractable pain syndrome suspect related to lumbar vertebral compression fractures.
Lumbar x-ray noted. Fractures involving L1 and L3 vertebrae. Suspect fractures related to underlying osteoporosis. Less likely due to metastatic esophageal cancer.
Patient denies fall or trauma.
Increase OxyContin to 60 mg every 12 hours. Continue Oxy IR as needed. Limit use of IV Dilaudid. Discussed with patient and nursing.
Cont IV Decadron 4 mg Q6H per onc
Awaiting outpt rad onc radiotherapy
Neurosurgery eval
# L3 pathologic fracture noted on lumbar MRI. [place] to be due to metastatic esophageal cancer.
Oncology input noted. IV steroids initiated (see above). Eventual palliative radiation treatments to the spine.
Patient does not qualify for acute rehab and therefore cannot transfer to [facility] for rehab and radiation treatment.
# Metastatic esophageal cancer on treatment by [place] oncology.
Does have some dysphagia.
Speech therapy recommends regular solids, thin liquids.
requesting gentle IVF in fear of pt developing dehydration, OK with gentle IVF started NSS 40 cc/hr
# Constipation due to opioids and limited mobility.
Reportedly had a blood-tinged bowel movement according to nurse. This is normal for him with his underlying Crohn's.
# Crohn's disease on prednisone chronically.
# Hypomagnesemia -improved.
# Normocytic anemia -suspect chronic and related to malignancy.
Monitor for now. Baseline hemoglobin unknown.
Iron panel consistent with chronic disease.
# Anxiety disorder
Full code
Dispo: SNF with private room vs HH
d/w at the bedside.
Anticipated Discharge: 24 - 48 hours
Subjective/Interval History
-
Date of Service: June 16, 2024
Objective Data
-
Labs:
Laboratory Results
06/16/24
06:29
Sodium 137
Potassium 4.3
Chloride 104
Carbon Dioxide 26
BUN 45 H
Creatinine 0.8
Glucose 98
Calcium 9.4
Vital Signs:
Vital Signs
Temp Pulse Resp BP Pulse Ox
36.8 C 53 17 143/76 98
06/16/24 07:38 06/16/24 07:38 06/16/24 07:38 06/16/24 07:38 06/16/24 07:38
I&O
06/15/24 06/16/24 06/17/24
06:59 06:59 06:59
Intake Total 1200 / 1200 1090 / 1090
Output Total 150 / 150 425 / 425
Balance 1050 / 1050 665 / 665
Review of Systems
-
History Source: Patient
All other systems: Reviewed and negative
Musculoskeletal: Reports Other (lower back pain)
Data Reviewed
-
Labs: Labs Reviewed by me
[2024-06-16 11:41] VITALS: BP 124/68; PULSE 62; O2SAT 98
[2024-06-16] MEDS: NSS 1000 IV (11:58)
[2024-06-16 12:02] VITALS: BMI 22.5
--- NOTE | 2024-06-16 13:58 | CON.NS ---
Documented by User: Peyton Nowak PA-C 06/16/24 14:27
Chief Complaint
-
back pain
History of Present Illness
This is a 73 y/o M with history of stage IV esophageal cancer who follows with oncology at [place] currently on Immunotherapy who presented to the ED with c/o left sided lower back pain without any radiation to his LE. Imaging demonstrated an L3
pathologic compression fracture. Neurosurgery was consulted for surgical recommendations.
Patient seen and examined with attending. Patient's , Arleth, was at bedside. Patient reports increasing low back pain over the past several weeks that has become severe. He denies any radicular pain or new numbness/tingling to his LE. He does
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 He had a PET scan in January which was negative for metastasis to the spine. He had a CT c/a/p in April with demonstrated a mild L3 compression fracture. Heme/Onc and Rad/Onc have seen and
evaluated the patient. They recommend continued chemotherapy and radiation therapy. Interventional Radiology was consulted for inpatient vertebroplasty, however they did not feel he was a good candidate. He is currently on baclofen prn, IV Dilaudid,
oxycodone 2.5mg immediate relief and Oxycontin 60mg Controlled release BID and Decadron 4mg q 6 hours.
Review of Systems
-
a 10 point ROS was completed and is negative except for what is mentioned in the HPI.
Medication and Allergies
Home Medications
Home Medications
�Medication �Instructions �Recorded
Magic Mouthwash 1 dose buccal DAILYPRN PRN mouth 06/08/24
sores
esomeprazole magnesium 40 mg 40 mg PO BID 06/08/24
capsule,delayed release (Nexium)
magnesium oxide 200 mg PO BID 06/08/24
olanzapine 2.5 mg tablet 2.5 mg PO BIDPRN PRN mental health 06/08/24
ondansetron 4 mg disintegrating 4 mg PO DAILYPRN PRN nausea 06/08/24
tablet
polyethylene glycol 3350 17 gram 17 g PO DAILYPRN PRN constipation 06/08/24
oral powder packet (Miralax)
sennosides 8.6 mg tablet (senna) 8.6 mg PO DAILYPRN PRN constipation 06/08/24
sertraline 50 mg tablet 50 mg PO QPM 06/08/24
acetaminophen 500 mg tablet 1,000 mg (2 x 500 mg) PO TID #0 06/13/24
(Tylenol Extra Strength) tabs
baclofen 10 mg tablet 10 mg PO DAILYPRN PRN burping #0 06/13/24
tabs
dexamethasone 4 mg tablet 8 mg (2 x 4 mg) PO BID #30 tabs 06/13/24
lidocaine 4 % topical patch 1 patch topical HS #0 ea 06/13/24
oxycodone 10 mg tablet 20 mg (2 x 10 mg) PO Q3HPRN PRN 06/13/24
severe pain #10 tabs
oxycodone 20 mg tablet,crush 40 mg (2 x 20 mg) PO Q12H #8 tabs 06/13/24
resistant,extended release 12 hr
(OxyContin)
Allergies
Allergies
Allergy/AdvReac Type Severity Reaction Status Date / Time
bacitracin Allergy Severe Rash Verified 12/10/17 19:17
[From Neosporin
([id number])]
neomycin Allergy Severe Rash Verified 12/10/17 19:17
[From Neosporin
([id number])]
polymyxin B Allergy Severe Rash Verified 12/10/17 19:17
[From Neosporin
([id number])]
Latex, Natural Rubber Allergy soft Verified 12/10/17 19:17
tissue
swelling
w/ latex
gloves
orally
prochlorperazine edisylate Allergy muscle Verified 12/10/17 19:17
[From Compazine] twitch
prochlorperazine maleate Allergy Unknown Verified 12/10/17 19:17
[From Compazine]
Physical Exam
-
Exam:
Patient is awake, alert and oriented
Cachectic appearing
Speech: clear.fluent
motor: 5/5 with the exception of 4-/5 in bilateral KF, KE which was limited by back pain.
sensation intact to crude touch: slightly decreased on the left in the burns and foot and slightly decreased in the right on the thigh
no swelling or edema in LE
non labored breathing
MRI lumbar spine Imaging and report personally reviewed and interpreted by myself and attending
IMPRESSION:
L3 expansile metastatic lesion with pathologic fracture. Secondary encroachment upon the central canal, left lateral recess, and left L3-4 neural foramen. Moderate central canal and severe left lateral recess stenosis. Mild compression of the
exiting left L3 nerve root.
Problems
-
Problem Status Onset Code
Compression fracture
Intractable back pain M54.9
Assessment / Plan
-
This is a 73 y/o M with L3 pathologic compression fracture
--MRI reviewed with the patient and his .
--Dr. Bucio had an in depth conversation regarding recommendations and treatment options. Surgical intervention would delay the ability to start chemo/radiation for 3-4 weeks. At this time, we recommend obtaining an LSO brace to be worn when
patient is upright and/or ambulating and further pain control.
--Order placed for LSO. Please contact [facility] bracing.
--patient seen and examined with Dr. Bucio

Documented by User: Barbara Bucio MD 06/16/24 14:57
Problems
-
Problem Status Onset Code
Compression fracture
Intractable back pain M54.9
Assessment / Plan
-
This is a 73 y/o M with L3 pathologic compression fracture
--MRI reviewed with the patient and his .
--Dr. Bucio had an in depth conversation regarding recommendations and treatment options. Surgical intervention would delay the ability to start chemo/radiation for 3-4 weeks. At this time, we recommend obtaining an LSO brace to be worn when
patient is upright and/or ambulating and further pain control.
--Order placed for LSO. Please contact [facility] bracing.
--patient seen and examined with Dr. Bucio
ATTENDING ATTESTATION:
Patient seen and examined.
Denies any radicular pain in legs. Imaging reviewed, which demonstrates pathological L3 fx. This was also noted on CT abd/pelvis from outside facility that provided report for in 04/2024.
Discussed management options: REcommend LSO bracing when weightbearing, pain control and radiotherapy.
If patient ultimately fails, then would suggest vertebroplasty in OR +/- laminoforaminotomy if needed. Would need to be transferred to facility where this is performed (ie [facility] vs [place]).
prefers patient to be transferred to [place] if surgery is necessary as she expressed that is where primary oncology care has been.
If patient and family wish to be transferred to [facility], please contact us to help facilitate.
Call with ?s.
--- NOTE | 2024-06-16 14:18 | CM ---
Skip remains a full code. Awaiting outpt rad onc radiotherapy and Neurosurgery eval.
d/w at the bedside. [facility] considering the patient for admission and [facility] is willing to offer a private room tomorrow. Pt will need to go for XRT; [facility] will not pay for transportation. Pt's aware of same.
is considering transporting herself with help of family members.
Plan: Transfer to [facility] with private room, bed available 06/16 in the afternoon. Pt's aware that transportation to/from XRT will not be provided; is considering transporting herself with help of family members.
[2024-06-16 15:27] VITALS: BP 113/70
[2024-06-16] MEDS: ZOLOFT 50 MG PO (17:03)
[2024-06-16] MEDS: SENOKOT-S 1 TABLET PO (21:08)
[2024-06-16] MEDS: LIORESAL 5 MG PO (21:13)
[2024-06-16 23:11] VITALS: BP 139/78
[2024-06-17] MEDS: DILAUDID 1 MG IV ×2 (03:38→08:48)
[2024-06-17] MEDS: DECADRON 4 MG IV ×4 (05:18→23:47)
[2024-06-17 06:53] LABS: Blood Urea Nitrogen 43 mg/dl (9-20); Calcium 9.4 mg/dl (8.4-10.2); Carbon Dioxide 27 mmol/L (22-30); Chloride 103 mmol/L (98-107); Estimated Creatinine Clearance 79 ml/min; Glucose 104 mg/dl (70-99); Magnesium 1.9 mg/dl (1.6-2.3); Potassium 4.6 mmol/L (3.5-5.1); Sodium 134 mmol/L (135-145); eGFR > 60.00
[2024-06-17 07:00] VITALS: BP 153/79
--- NOTE | 2024-06-17 08:04 | W.PN.ONC2 ---
Today's Communication / Plan
-
Discharge planning for transition to SNF to receive outpatient radiation therapy. Discussed case with Dr. Carpenter (rad onc) and Fortunato (neurosurgery).
Impression
Impression
Stage IV esophageal cancer on immunotherapy with Dr. Kulkarni at [facility]
Intractable back pain likely from compression fracture of the L3 vertebral body, expansile mass noted
Constipation
Question of interstitial lung disease from [facility]
anemia -Iron studies, b12, folate levels are without evidence of substrate deficiency
Plan
Plan
Reviewed case with neurosurgery and radiation oncology.
Plan formalized yesterday is that the patient will be transition to SNF and will receive outpatient radiation.
will be involved in transporting patient from SNF to [facility] for treatments.
Dexamethasone 4mg q6 - PPI while on steroid, tight glycemic control while on steroids.
baclofen to 5mg prn
Eventual outpatient XRT to L3
Bowel regimen while on narcotics
Subjective/Objective
Chief Complaint
[facility] hematology oncology follow-up progress note
Subjective
Still with back pain. Patient was seen by neurosurgery. No plans for surgical treatment.
Vital Signs:
Vital Signs
Temp Pulse Resp BP Pulse Ox
97.5 F 51 16 153/79 95
06/17/24 07:00 06/17/24 07:00 06/17/24 07:00 06/17/24 07:00 06/17/24 07:00
Lab Results:
Laboratory Data
WBC 9.6 10^3/uL (4.8-10.8) 06/15/24 07:37
Hgb 9.0 g/dL (13.0-18.0) L 06/15/24 07:37
Plt Count 275 10^3/uL (130-400) D 06/15/24 07:37
eGFR > 60.00 06/17/24 06:08
Physical Exam
HEENT: No Jaundice
Cardiology: S1 and S2
Pulmonary: Clear
GI: Soft
Extremities: No C/C/E
--- NOTE | 2024-06-17 09:51 | W.PN.HOSP.TC ---
Today's Communication/Plan
-
see A/P
Assessment / Plan
Assessment / Plan
Gen-AAOx3, NAD
HEENT-NC, AT, anicteric, clear oral mm
Neck-supple
CV-reg, no M, +S1/S2
Lungs-clear B/L
Abd-soft, NT, ND
Ext-no edema
Musculoskeletal-no cyanosis, clubbing
Skin-warm and dry
Neuro-grossly non-focal
Psych-calm, cooperative
A/P:
# Intractable pain syndrome suspect related to lumbar vertebral compression fractures.
Lumbar x-ray noted. Fractures involving L1 and L3 vertebrae. Suspect fractures related to underlying osteoporosis. Less likely due to metastatic esophageal cancer.
Patient denies fall or trauma.
Increase OxyContin to 60 mg every 12 hours. Continue Oxy IR as needed.
Change IV Dilaudid to PO.
Cont IV Decadron 4 mg Q6H per onc with plan to change to PO same dose following discharge until outpt radiotherapy.
Awaiting initiation of outpt rad onc radiotherapy
Appreciate Neurosurgery input, [facility] LSO bracing when weightbearing, pain control and outpt radiotherapy.
# L3 pathologic fracture noted on lumbar MRI. [place] to be due to metastatic esophageal cancer.
Oncology input noted. IV steroids initiated (see above). Eventual palliative radiation treatments to the spine.
Patient does not qualify for acute rehab and therefore cannot transfer to [facility] for rehab and radiation treatment.
# R forearm pain
R forearm exam unrevealing (no swelling, erythema, etc), good radial pulse
Check RUE XR and RUE US
# Metastatic esophageal cancer on treatment by [facility].
Does have some dysphagia.
Speech therapy recommends regular solids, thin liquids.
requesting gentle IVF in fear of pt developing dehydration, OK with gentle IVF started NSS 40 cc/hr
# Constipation due to opioids and limited mobility.
Reportedly had a blood-tinged bowel movement according to nurse. This is normal for him with his underlying Crohn's.
# Crohn's disease on prednisone chronically.
# Hypomagnesemia -improved.
# Normocytic anemia -suspect chronic and related to malignancy.
Monitor for now. Baseline hemoglobin unknown.
Iron panel consistent with chronic disease.
# Anxiety disorder
Full code
Dispo: [facility] with private room vs
d/w Onc Dr Calixto
d/w [facility] Rad[facility]c Dr Carpenter
d/w at the bedside.
total time spent 51 min
Anticipated Discharge: 24 - 48 hours
Subjective/Interval History
-
Date of Service: June 17, 2024
Objective Data
-
Labs:
Laboratory Results
06/17/24
06:08
Sodium 134 L
Potassium 4.6
Chloride 103
Carbon Dioxide 27
BUN 43 H
Creatinine 0.8
Glucose 104 H
Calcium 9.4
Vital Signs:
Vital Signs
Temp Pulse Resp BP Pulse Ox
36.4 C 51 16 153/79 95
06/17/24 07:00 06/17/24 07:00 06/17/24 07:00 06/17/24 07:00 06/17/24 07:00
I&O
06/16/24 06/17/24 06/18/24
06:59 06:59 06:59
Intake Total 1090 / 1090 1230 / 1230
Output Total 425 / 425 475 / 475
Balance 665 / 665 755 / 755
Review of Systems
-
History Source: Patient
All other systems: Reviewed and negative
Musculoskeletal: Reports Joint Pain (R forearm pain ) and Other (lower back pain)
Data Reviewed
-
Labs: Labs Reviewed by me
[2024-06-17] MEDS: MAGNESIUM OXIDE 250 MG PO ×2 (09:52→19:46)
[2024-06-17] MEDS: SENOKOT-S PO ×2 (09:54→12:39)
[2024-06-17] MEDS: TYLENOL 1000 MG PO ×3 (09:55→22:00)
[2024-06-17] MEDS: MIRALAX 17 GRAMS PO (09:55)
[2024-06-17] MEDS: NON-FORMULARY ITEM 40 MG PO ×2 (09:58→19:57)
[2024-06-17] MEDS: DESENEX/MITRAZOL/ZEASORB 1 APPLIC TOPICAL ×2 (09:58→19:57)
--- NOTE | 2024-06-17 11:40 | CM ---
Spoke with Sofia and her directory from [facility] rehab.
They are unable to have patient there if he is receiving radiation therapy, chemotherapy or immunotherapy.
CM will f/u.
[2024-06-17] MEDS: OXYCONTIN (CONTROLLED RELEASE) 60 MG PO ×2 (12:12→22:00)
[2024-06-17] MEDS: NSS 1000 IV (12:13)
[2024-06-17 15:13] VITALS: BP 122/56
[2024-06-17 15:27] VITALS: BP 124/66
[2024-06-17] MEDS: LIORESAL 5 MG PO ×2 (15:46→23:47)
[2024-06-17] MEDS: DILAUDID 0.25 MG IV ×3 (15:46→23:47)
[2024-06-17] MEDS: ZOLOFT 50 MG PO (17:24)
[2024-06-17] MEDS: SENOKOT-S 1 TABLET PO (19:47)
[2024-06-17] MEDS: LIDOCAINE 4% PATCH TOPICAL (21:51)
[2024-06-17 23:23] VITALS: BP 136/65
[2024-06-18] MEDS: DILAUDID 0.25 MG IV ×6 (03:51→20:15)
[2024-06-18] MEDS: DECADRON 4 MG IV ×3 (05:00→18:47)
--- NOTE | 2024-06-18 05:59 | DOWNTIME ---
There was a [employer] Downtime on 06/18/2024 from 0200 to 06/19/2023 at 0318 . Downtime documentation of patient's care, including medication administrations, has been reconciled in the electronic record per guidelines. Refer to the
patient's paper chart under the miscellaneous tab to see printed paper medication records and downtime forms.
--- NOTE | 2024-06-18 07:06 | W.PN.ONC2 ---
Today's Communication / Plan
-
D/C planning to get him somewhere that will allow initiation of XRT.
Spoke with [facility] at length as well.
They can take him home as last resort.
> 35 min coordination of care
Impression
Impression
Stage IV esophageal cancer on immunotherapy with Dr. Kulkarni at [facility]
Intractable back pain with movement pain from malignant L3 compression fracture, expansile mass noted
[facility]
anemia -Iron studies, b12, folate levels are without evidence of substrate deficiency
Plan
Plan
Reviewed case with neurosurgery and radiation oncology.
Plan formalized yesterday is that the patient will be transition to SNF and will receive outpatient radiation to L3 to start RAMON..
Initial SNF ([facility]) now won't accept. Working on alternative discharge plan.
Dexamethasone 4mg PO q6 - PPI while on steroid, tight glycemic control while on steroids. Wean after XRT started.
baclofen to 5mg prn
Bowel regimen while on narcotics
Subjective/Objective
Chief Complaint
[facility] Heme Onc
Subjective
Pain controlled at rest. Intolerable with movement like trying to stand up. Some right distal arm and proximal forearm discomfort. Imaging done yesterday.Awaiting placement. [facility] initially approved him for XRT, then reneged. Case
management working on alternative options. [facility] D/C not possible per team.
Vital Signs:
Vital Signs
Temp Pulse Resp BP Pulse Ox
97.6 F 56 17 136/65 97
06/17/24 23:23 06/17/24 23:23 06/17/24 23:23 06/17/24 23:23 06/17/24 23:23
Lab Results:
Laboratory Data
WBC 9.6 10^3/uL (4.8-10.8) 06/15/24 07:37
Hgb 9.0 g/dL (13.0-18.0) L 06/15/24 07:37
Plt Count 275 10^3/uL (130-400) D 06/15/24 07:37
eGFR > 60.00 06/17/24 06:08
Physical Exam
at rest...comfortable.
HEENT: No Jaundice
Cardiology: S1 and S2
Pulmonary: Clear
GI: Soft
[2024-06-18 07:18] LABS: Blood Urea Nitrogen 41 mg/dl (9-20); Calcium 9.2 mg/dl (8.4-10.2); Carbon Dioxide 27 mmol/L (22-30); Chloride 102 mmol/L (98-107); Estimated Creatinine Clearance 79 ml/min; Glucose 107 mg/dl (70-99); Magnesium 1.9 mg/dl (1.6-2.3); Potassium 4.9 mmol/L (3.5-5.1); Sodium 133 mmol/L (135-145); eGFR > 60.00
[2024-06-18] MEDS: NON-FORMULARY ITEM 40 MG PO ×2 (07:45→20:14)
[2024-06-18] MEDS: MAGNESIUM OXIDE 250 MG PO ×2 (07:48→20:15)
[2024-06-18] MEDS: SENOKOT-S PO (07:51)
[2024-06-18] MEDS: MIRALAX 17 GRAMS PO (07:51)
[2024-06-18] MEDS: DESENEX/MITRAZOL/ZEASORB 1 APPLIC TOPICAL ×2 (07:52→20:17)
[2024-06-18] MEDS: TYLENOL 1000 MG PO ×3 (07:53→22:00)
[2024-06-18 07:54] VITALS: BP 142/83
[2024-06-18] MEDS: OXYCONTIN (CONTROLLED RELEASE) 60 MG PO ×2 (11:05→22:00)
--- NOTE | 2024-06-18 12:04 | W.PN.HOSP.TC ---
Addendum entered and electronically signed by Luba Silver MD 06/18/24 12:27:
# Opioid use with dependence
Original Note:
Today's Communication/Plan
-
see A/P
Assessment / Plan
Assessment / Plan
A/P:
# Intractable pain syndrome suspect related to lumbar vertebral compression fractures.
Lumbar x-ray noted. Fractures involving L1 and L3 vertebrae. Suspect fractures related to underlying osteoporosis. Less likely due to metastatic esophageal cancer.
Patient denies fall or trauma.
Increase OxyContin to 60 mg every 12 hours. Continue Oxy IR as needed.
Cont low dose IV Dilaudid PRN and PO Dilaudid.
Cont IV Decadron 4 mg Q6H per onc with plan to change to PO same dose following discharge until outpt radiotherapy.
Appreciate Neurosurgery input, [facility] LSO bracing when weightbearing, pain control and outpt radiotherapy.
feel strongly about transfer to [place] for XRT, she will check with pt's outpt oncologist Dr Kulkarni to see if pt could be accepted for transfer to [place] to start XRT
# L3 pathologic fracture noted on lumbar MRI. [place] to be due to metastatic esophageal cancer.
Oncology input noted. IV steroids initiated (see above). Eventual palliative radiation treatments to the spine.
Patient does not qualify for acute rehab and therefore cannot transfer to [facility] for rehab and radiation treatment.
# R forearm pain, ?muscle strain
R forearm exam unrevealing (no swelling, erythema, etc), good radial pulse
RUE XR and RUE US both unrevealing
# Metastatic esophageal cancer on treatment by [place] oncology.
Does have some dysphagia.
Speech therapy recommends regular solids, thin liquids.
requesting gentle IVF in fear of pt developing dehydration, OK with gentle IVF started NSS 40 cc/hr
# Constipation due to opioids and limited mobility.
Reportedly had a blood-tinged bowel movement according to nurse. This is normal for him with his underlying Crohn's.
# Crohn's disease on prednisone chronically.
# Hypomagnesemia -improved.
# Normocytic anemia -suspect chronic and related to malignancy.
Monitor for now. Baseline hemoglobin unknown.
Iron panel consistent with chronic disease.
# Anxiety disorder
Full code
Dispo: pending decision
Extensive discussion with Onc Dr Calixto
Extensive discussion with at bedside
total time spent 51 min
Anticipated Discharge: 24 - 48 hours
Subjective/Interval History
-
Date of Service: June 18, 2024
Objective Data
-
Labs:
Laboratory Results
06/18/24
06:18
Sodium 133 L
Potassium 4.9
Chloride 102
Carbon Dioxide 27
BUN 41 H
Creatinine 0.8
Glucose 107 H
Calcium 9.2
Vital Signs:
Vital Signs
Temp Pulse Resp BP Pulse Ox
36.4 C 53 16 142/83 98
06/18/24 07:54 06/18/24 07:54 06/18/24 07:54 06/18/24 07:54 06/18/24 07:54
I&O
06/17/24 06/18/24 06/19/24
06:59 06:59 06:59
Intake Total 1230 / 1230 1500 / 1500
Output Total 475 / 475 1600 / 1600
Balance 755 / 755 -100 / -100
Review of Systems
-
History Source: Patient
All other systems: Reviewed and negative
Musculoskeletal: Reports Joint Pain (R forearm pain ) and Other (lower back pain)
Physical Exam
-
General: Well Developed, No Apparent Distress, Comfortable, Conversant, Appears Chronically Ill and Other (extremely weak and deconditioned )
Respiratory: Non Labored Respirations; Negative Accessory Resp Muscle Use
Cardiac: Regular Rhythm and S1/S2
Neuro: Awake
Psych: Calm and Intact Judgement/Insight
Data Reviewed
-
Labs: Labs Reviewed by me
--- NOTE | 2024-06-18 12:14 | PN.CDI ---
CDI
- -
CDI:
Physician Documentation Request
Admit Date: 06/09/24 09:34
Dear Doctor Adrianne,
Please review the following and provide your response in the progress notes.
Clinical Indicators:
- Patient admit for pathologic lumbar fracture
- per H&P home medication oxycodone PRN pain
- 20 mg Oxycodone given x 14
- 20 mg Oxycodone controlled release increased to 60 mg - given x 9
- 06/18 PN 'Constipation due to opioids'
If possible, please provide further specificity as outlined below:
Opioid use with dependence
Opioid dependence
Other (please specify)
Use of terms such as suspected, likely, concern for, or probable (associated with a specific diagnosis that is being evaluated, monitored, or treated as if it exists) are acceptable and can be coded in the inpatient setting, when documented at the
time of discharge.
Thank you,
Rufina Wheeler RN
CDI Specialist
Please use your independent medical judgment in providing your response.
[2024-06-18] MEDS: NSS 1000 IV (13:07)
--- NOTE | 2024-06-18 14:23 | W.PN.UPDATE ---
Addendum entered and electronically signed by Luba Silver MD 06/18/24 14:44:
D/w on-call oncologist Dr Caden Wood.
Pt has been accepted by Dr Caden Wood at [facility].
Transfer center to take over to facilitate transfer.
Original Note:
Update Note
Progress Note Update
I have had extensive discussion with oncologist and regarding care for this patient.
According to disease case manager rn, although SNF with private room (requested by ) was found, SNF is not able to transport patient to outpatient radiotherapy.
This implies that SNF is no longer an option for the patient.
The plan yesterday was that the would take the patient home with home care, and that she would transport the patient for outpatient radiation.
Today, she indicated to me that she is not able to take care of the patient at home, and requested transfer to [facility].
I have informed her that this requires an accepting physician from [facility]. If the patient's outpatient oncologist Dr. Kulkarni is able to speak with the on-call oncologist at [facility], and the on-call oncologist accepts the patient, then transfer would not
be a problem.
It is unclear whether Dr. Kulkarni has discussed this case with the on-call oncologist at [facility] or not.
I have called the transfer center at [facility], and have been told that there is currently no beds.
According to [facility] transfer center, the on-call oncologist will reach out to me later.
I have informed the transfer center at [facility] that the on-call oncologist should speak with Dr. Kulkarni directly before reaching out to me.
It would be ideal that the oncologists at [facility] have an internal discussion about the patient, and let me know what their final decision is with regard to transfer.
Total time spent coordinating care for this patient was more than 1 hour.
--- NOTE | 2024-06-18 15:09 | CM ---
Spoke with a few admissions coordinators and discussed medicare information found on line to see if radiation therapy can be done at the facilities, they are reviewing and will let CM know.
Referrals updated via [facility].
[2024-06-18 15:20] VITALS: BP 130/72
[2024-06-18] MEDS: ZOLOFT 50 MG PO (18:47)
[2024-06-18] MEDS: LIORESAL 5 MG PO (20:15)
[2024-06-18] MEDS: SENOKOT-S 1 TABLET PO (20:15)
--- NOTE | 2024-06-18 21:35 | PTCARENOTE ---
Patient to be transferred to [facility] at 10pm [facility]. Report given to JACOB Arrieta at [facility]. All questions answered at this time.
== END 2024-06-18 23:20 | DRG 543 ==
LOC: 3 WEST ACU 09:34
PROVIDERS: Emergency Medicine; Hospitalist; Nurse Practitioner Acute Care; Registered Nurse; ADMITTING PHYSICIAN Internal Medicine; ATTENDING PHYSICIAN Internal Medicine; EMERGENCY PHYSICIAN Emergency Medicine; FAMILY PHYSICIAN Family Medicine; OTHER PHYSICIAN Internal Medicine Hematology & Oncology; OTHER PHYSICIAN Neurological Surgery
DX: M80.08XA Age-related osteoporosis with current pathological fracture, vertebra(e), initial encounter for fracture (principal); C15.9 Malignant neoplasm of esophagus, unspecified; K50.911 Crohn's disease, unspecified, with rectal bleeding; C79.51 Secondary malignant neoplasm of bone; F11.20 Opioid dependence, uncomplicated; M47.816 Spondylosis without myelopathy or radiculopathy, lumbar region; Z87.891 Personal history of nicotine dependence; E83.42 Hypomagnesemia; D63.8 Anemia in other chronic diseases classified elsewhere; F41.9 Anxiety disorder, unspecified; K59.03 Drug induced constipation; T40.2X5A Adverse effect of other opioids, initial encounter; D72.829 Elevated white blood cell count, unspecified; G89.3 Neoplasm related pain (acute) (chronic); R13.10 Dysphagia, unspecified; Z87.11 Personal history of peptic ulcer disease
CPT/HCPCS: 72110; 72148; 73090; 80048; 80053; 81003; 82607; 82728; 82746; 83540; 83550; 83735; 85025; 85027; 92610; 93971; 96365; 96375; 96376; 97112; 97116; 97163; 97167; 97530; 97535; 99285